=== PATIENT | female | born 1950 | race Caucasian/White ===

== ENCOUNTER → 2016-05-06 | Outpatient (CLI) | payer OTHER ==
[~2016-05-06] MED LIST: ASPEC81; ASPI81TA28 PO; CEPH500C PO; DONE1TAB11 PO; FLUO20CA35 PO; PRLSR20 PO; REFLUX MED; TRAM-10 PO
[2016-05-06 12:45] LABS: BASO % 0.2 %; BASO ABS # 0.02 K/uL (0-0.2); COMPLETE YES; EOS % 1.6 %; HEMATOCRIT 48.3 % (37-47); IG% 0.2 %; LYMPH % 35.2 %; LYMPH ABS # 3.34 K/uL (1.2-3.4); MEAN CELL VOLUME 89.4 fL (80-100); MEAN CORPUSCULAR HEMOGLOBIN 29.1 pg (25-34); MEAN CORPUSCULAR HGB CONC 32.5 g/dl (32-36); MEAN PLATELET VOLUME 10.8 fL (7.4-10.4); MONO % 6.3 %; NEUT % 56.5 %; PLATELET COUNT 286 K/uL (130-400); WHITE BLOOD COUNT 9.48 K/uL (4.8-10.8)
[2016-05-06 12:58] LABS: ALKALINE PHOSPHATASE 88 U/L (45-117); ALT/SGPT 23 U/L (12-78); AST/SGOT 13 U/L (15-37); BLOOD UREA NITROGEN 13 mg/dl (7-18); BUN/CREATININE RATIO 15.6 (10-20); CARBON DIOXIDE 25 mmol/L (21-32); CHLORIDE 104 mmol/L (98-107); CHOLESTEROL 205 mg/dl (0-200); CREATININE 0.86 mg/dl (0.60-1.20); GLUCOSE 81 mg/dl (70-99); SODIUM 138 mmol/L (136-145); TRIGLYCERIDES 103 mg/dl (0-150); VERY LOW DENSITY LIPOPROT CALC 21 mg/dl
[2016-05-06 13:08] LABS: CHOLESTEROL/HDL RATIO 3.3; HDL CHOLESTEROL 62 mg/dl
== END | disposition home or self-care (01) ==
LOC: C.LABSPEC 12:26
PROVIDERS: ATTEND Internal Medicine
DX: R41.3 Other amnesia (principal); E78.5 Hyperlipidemia, unspecified

== ENCOUNTER → 2016-07-28 | Outpatient (CLI) | payer OTHER ==
[2016-07-28 14:20] LABS: BLOOD UREA NITROGEN 16 mg/dl (7-18); BUN/CREATININE RATIO 17.4 (10-20); CALCIUM 9.2 mg/dl (8.5-10.1); CARBON DIOXIDE 25 mmol/L (21-32); CHLORIDE 106 mmol/L (98-107); CREATININE 0.92 mg/dl (0.60-1.20); GLUCOSE 97 mg/dl (70-99); POTASSIUM 3.8 mmol/L (3.5-5.1); SODIUM 141 mmol/L (136-145)
== END | disposition home or self-care (01) ==
LOC: C.LABSPEC 12:35
PROVIDERS: ATTEND Internal Medicine
DX: Z01.812 Encounter for preprocedural laboratory examination (principal)

== ENCOUNTER → 2016-07-30 | Outpatient (CLI) | payer OTHER ==
[~2016-07-30] MED LIST changes: +GADAVIST IV PRN
--- NOTE | 2016-07-30 12:30 | DIAGNOSTIC IMAGING REPORT ---
MRI OF THE BRAIN COMBO CLINICAL HISTORY: Memory loss. COMPARISON STUDY: No priors. TECHNIQUE: MRI of the brain was performed utilizing various T1 and T2-weighted sequences in the axial, sagittal, and coronal planes. Contrast-enhanced sequences were acquired following the administration of 6.5 cc of Gadavist. FINDINGS: Brain parenchyma: There are age-related involutional changes noting moderate patchy subcortical and periventricular microangiopathic disease. There is no hemorrhage or mass effect. There is no restricted diffusion to suggest acute ischemia. No enhancing mass lesion is identified on the postcontrast images. Navarrete-white matter differentiation is preserved. No extra-axial fluid collection is seen. The cerebellar tonsils are normal in configuration. Ventricles, sulci, and cisterns: Prominent secondary to involutional change. Pituitary and sella: Partially empty sella is incidentally noted. Intracranial vasculature: Normal flow voids are maintained at the skull base. Orbits: The bony orbits are grossly intact. Orbital contents are normal in appearance. Sinuses and mastoids: Clear. Calvarium: Unremarkable. Cervical cord: Partially visualized cervical spinal cord is normal in morphology and signal intensity. IMPRESSION: No acute intracranial abnormality. Electronically signed by: Zaid Boyce M.D. 07/30/2016 12:29 PM Dictated Date/Time: 07/30/2016 12:26 PM
== END | disposition home or self-care (01) ==
LOC: C.MRIBC 11:12
PROVIDERS: ATTEND Psychiatry & Neurology Neurology
DX: R41.3 Other amnesia (principal)

== ENCOUNTER 2016-09-08 14:45 | Emergency (ER) | payer OTHER ==
[~2016-09-08 14:45] MED LIST changes: -ASPI81TA28 PO; -CEPH500C PO; -DONE1TAB11 PO; -FLUO20CA35 PO; -GADAVIST IV PRN; -PRLSR20 PO; -TRAM-10 PO
[2016-09-08 15:05] VITALS: TEMP 36.6
[2016-09-08] MEDS ORDERED: CYCLOBENZAPRINE HCL 10 MG TAB PO STA (16:31)
[2016-09-08] MEDS ORDERED: FENTANYL CITRATE INJ 50 MCG/1 ML 2 ML VIAL IV STA (16:31)
--- NOTE | 2016-09-08 16:38 | EMERGENCY ROOM VISIT NOTE ---
History Report prepared by Giuseppe: Eber Valente Under the Supervision of: Dr. Nabila Cornelius M.D. First contact with patient: 16:25 Chief Complaint: FALL Stated Complaint: FELL IN BATHTUB History of Present Illness The patient is a 66 year old female who presents to the Emergency Room with complaints of a sudden fall injury at 0930. She rates her pain as an 8/10 in severity. The patient states that she fell in her tub earlier this morning by tripping over the side trying to get out. She denies any loss of consciousness, but cannot remember if she hit anything due to her memory loss. The patient reports that her granddaughter is at her home often and found the patient on the floor following the incident. The patient states that she has been experiencing back pain whenever she ambulates and has been having trouble standing up and ambulating. The patient states that she took two Tylenol to alleviate her pain. She reports that she was going to visit the chiropractor earlier today but states that the pain worsened prompting her to visit the ED. The patient admits that she takes Aspirin and cholesterol medication. She reports that she usually has a poor appetite. The patient denies incontinence and shooting pain into her legs. Source of History: patient Onset: 0930 Position: other (global) Symptom Intensity: 8/10 in severity Timing: worsening Modifying Factors (Relieving): tylenol Associated Symptoms: + back pain, No LOC, No urinary symptoms Review of Systems See HPI for pertinent positives & negatives. A total of 10 systems reviewed and were otherwise negative. Past Medical & Surgical Medical Problems: (1) GERD (gastroesophageal reflux disease) Family History Cancer FH: CAD (coronary artery disease) FH: myocardial infarction Lung disease Social History Smoking Status: Current Some Day Smoker Alcohol Use: none Drug Use: none Marital Status: Housing Status: lives with family Current/Historical Medications Scheduled Aspirin (Aspirin Ec), 81 MG PO DAILY Cephalexin Monohydrate (Keflex), 500 MG PO TID Donepezil Hydrochloride (Donepezil Hcl), 5 MG PO HS Fluoxetine (Prozac), 20 MG PO DAILY Omeprazole (Prilosec), 20 MG PO DAILY Scheduled PRN Tramadol (Ultram), 1 TABS PO Q6 PRN for Pain Allergies Coded Allergies: No Known Allergies (Verified Allergy, Unknown, 10/29/04) Physical Exam Vital Signs Date Time Temp Pulse Resp B/P (MAP) Pulse Ox O2 Delivery O2 Flow Rate FiO2 09/08/16 20:10 74 20 142/70 97 09/08/16 19:21 75 20 140/62 95 Room Air 09/08/16 18:14 57 18 153/63 96 Room Air 09/08/16 17:12 70 09/08/16 17:10 96 Room Air 09/08/16 17:08 74 20 172/78 96 Room Air 09/08/16 15:05 36.6 79 18 160/85 98 Room Air Physical Exam Vital signs reviewed. General: Well-appearing 66 year old female, in no significant distress. HEENT: No scleral icterus, PERRLA, neck supple. Atraumatic. Cardiovascular: Regular rate and rhythm, no extra sounds. Pulmonary: Clear to auscultation bilaterally, normal work of breathing. Abdomen: Soft, nontender, nondistended, positive bowel sounds. Back: Tenderness to palpation over low lumbar spine. No step or deformity. Lumbar paraspinous muscle tenderness and some pain with movement. Some mild lumbar pain with right straight leg raise. No pain with left straight leg raise. Musculoskeletal: Atraumatic, no peripheral edema. Neurologic: Patient awake alert and oriented x 3, full strength in all 4 extremities. Cranial nerves 2 through 12 grossly intact. Skin: Warm, dry, no rash Medical Decision & Procedures ER Provider Diagnostic Interpretation: Radiology results as stated below per my review and radiologist interpretation: PELVIS 1 OR 2 VIEW ROUTINE CLINICAL HISTORY: Fall. COMPARISON STUDY: CT of the abdomen and pelvis September 14, 2005. FINDINGS: The sacroiliac joints and symphysis pubis are intact. There is no acute fracture within the pelvis or the hips. IMPRESSION: No acute fracture within the pelvis or hips. Electronically signed by: Bryon Flores M.D. 09/08/2016 6:10 PM Dictated Date/Time: 09/08/2016 6:09 PM L-SPINE MIN 4 VIEWS ROUTINE CLINICAL HISTORY: Fall. COMPARISON: CT of the abdomen and pelvis September 14, 2005. FINDINGS: There is mild loss of height of the superior endplate of L2. This is age indeterminate but new since CT of September 14, 2005. Mild multilevel degenerative disc disease and moderate multilevel facet arthrosis is present. IMPRESSION: Mild compression fracture of the superior endplate of L2. While age indeterminate, the appearance favors an acute to subacute fracture. Electronically signed by: Bryon Flores M.D. 09/08/2016 6:09 PM Dictated Date/Time: 09/08/2016 6:[address] OF THE HEAD WITHOUT CONTRAST CLINICAL HISTORY: Fall. COMPARISON STUDY: MRI of the brain July 30, 2016. CT DOSE: 601.98 mGy.cm TECHNIQUE: Helical axial images of the head were obtained without IV contrast. Automated exposure control was utilized for the study. FINDINGS: No acute intracranial hemorrhage, midline shift or mass effect is present. Ventricular system is normal. Basilar cisterns are patent. There are no extra axial collections. White matter hypodensities suggests small vessel disease. There are no findings to suggest acute dural sinus thrombosis or acute territorial infarct. There is no calvarial fracture. IMPRESSION: No acute intracranial findings. Electronically signed by: Bryon Flores M.D. 09/08/2016 5:38 PM Dictated Date/Time: 09/08/2016 5:37 PM CHEST ONE VIEW PORTABLE CLINICAL HISTORY: Fall. COMPARISON STUDY: Chest radiograph September 14, 2005. FINDINGS: There is no pneumothorax or pleural effusion. There is a suspected large hiatal hernia. Mild left basilar opacity favors atelectasis. No consolidation. Mild interstitial thickening is likely chronic. IMPRESSION: 1. No acute cardiopulmonary findings. 2. Large hiatal hernia. Electronically signed by: Bryon Flores M.D. 09/08/2016 6:08 PM Dictated Date/Time: 09/08/2016 6:06 PM Laboratory Results 09/08/16 16:58 Red Blood Count 5.43, Mean Corpuscular Volume 89.5, Mean Corpuscular Hemoglobin 30.0, Mean Corpuscular Hemoglobin Concent 33.5, Mean Platelet Volume 10.4, Neutrophils (%) (Auto) 87.2, Lymphocytes (%) (Auto) 8.4, Monocytes (%) (Auto) 4.0, Eosinophils (%) (Auto) 0.0, Basophils (%) (Auto) 0.1, Neutrophils # (Auto) 15.14, Lymphocytes # (Auto) 1.45, Monocytes # (Auto) 0.70, Eosinophils # (Auto) 0.00, Basophils # (Auto) 0.01 09/08/16 16:58 Test 09/08/16 16:58 7/3/17 18:12 White Blood Count 17.35 K/uL (4.8-10.8) Red Blood Count 5.43 M/uL (4.2-5.4) Hemoglobin 16.3 g/dL (12.0-16.0) Hematocrit 48.6 % (37-47) Mean Corpuscular Volume 89.5 fL (80-100) Mean Corpuscular Hemoglobin 30.0 pg (25-34) Mean Corpuscular Hemoglobin Concent 33.5 g/dl (32-36) Platelet Count 281 K/uL (130-400) Mean Platelet Volume 10.4 fL (7.4-10.4) Neutrophils (%) (Auto) 87.2 % Lymphocytes (%) (Auto) 8.4 % Monocytes (%) (Auto) 4.0 % Eosinophils (%) (Auto) 0.0 % Basophils (%) (Auto) 0.1 % Neutrophils # (Auto) 15.14 K/uL (1.4-6.5) Lymphocytes # (Auto) 1.45 K/uL (1.2-3.4) Monocytes # (Auto) 0.70 K/uL (0.11-0.59) Eosinophils # (Auto) 0.00 K/uL (0-0.5) Basophils # (Auto) 0.01 K/uL (0-0.2) RDW Standard Deviation 43.5 fL (36.4-46.3) RDW Coefficient of Variation 13.2 % (11.5-14.5) Immature Granulocyte % (Auto) 0.3 % Immature Granulocyte # (Auto) 0.05 K/uL (0.00-0.02) Anion Gap 7.0 mmol/L (3-11) Estimated GFR () 76.2 Estimated GFR (Non- 65.7 BUN/Creatinine Ratio 15.9 (10-20) Calcium Level 9.5 mg/dl (8.5-10.1) Total Bilirubin 0.7 mg/dl (0.2-1) Direct Bilirubin 0.2 mg/dl (0-0.2) Aspartate Amino Transf (AST/SGOT) 17 U/L (15-37) Alanine Aminotransferase (ALT/SGPT) 31 U/L (12-78) Alkaline Phosphatase 88 U/L (45-117) Total Protein 7.7 gm/dl (6.4-8.2) Albumin 4.0 gm/dl (3.4-5.0) Urine Color DK YELLOW Urine Appearance CLEAR (CLEAR) Urine pH 6.0 (4.5-7.5) Urine Specific [place] 1.024 (1.000-1.030) Urine Protein NEG (NEG) Urine Glucose (UA) NEG (NEG) Urine Ketones 3+ (NEG) Urine Occult Blood 1+ (NEG) Urine Nitrite POS (NEG) Urine Bilirubin NEG (NEG) Urine Urobilinogen NEG (NEG) Urine Leukocyte Esterase SMALL (NEG) Urine WBC (Auto) >30 /hpf (0-5) Urine RBC (Auto) 5-10 /hpf (0-4) Urine Hyaline Casts (Auto) 5-10 /lpf (0-5) Urine Epithelial Cells (Auto) >30 /lpf (0-5) Urine Bacteria (Auto) 4+ (NEG) Laboratory results per my review. Medications Administered Medications (Trade) Dose Ordered Sig/Rick Route Start Time Stop Time Status Last Admin Dose Admin Fentanyl Citrate (Fentanyl Inj) 25 mcg NOW STAT IV 09/08/16 16:31 09/08/16 16:37 DC 09/08/16 17:02 25 MCG Cyclobenzaprine HCl (Flexeril Tab) 5 mg NOW STAT PO 09/08/16 16:31 09/08/16 16:37 DC 09/08/16 17:02 5 MG Morphine Sulfate (MoRPHine SULFATE INJ) 2 mg NOW STAT IV 09/08/16 18:27 09/08/16 18:29 DC 09/08/16 18:38 2 MG Ondansetron HCl (Zofran Inj) 4 mg NOW STAT IV 09/08/16 18:27 09/08/16 18:29 DC 09/08/16 18:37 4 MG Ceftriaxone Sodium (Rocephin Inj) 1 gm NOW STAT IV 09/08/16 19:20 09/08/16 19:22 DC 09/08/16 19:29 1 GM ECG Indication: other (fall) Rate (beats per minute): 73 Rhythm: normal sinus Findings: other (poor quality baseline, low voltage, t wave flattening in the inferior and anterior leads) ED Course 9: Past medical records reviewed. The patient was evaluated in room A12. A complete history and physical examination was performed. 1631: Flexeril Tab 5 mg PO, Fentanyl Injection 25 mcg IV. 1826: Zofran Injection 4 mg IV, Morphine Sulfate 2 mg IV. 1919: Rocephin Injection 1 gram IV. 2010: Upon reevaluation, the patient appeared to have improvement of her symptoms. I discussed findings with the patient. She verbalized agreement of the treatment plan. She was discharged home. Medical Decision The differential diagnosis includes but is not limited to: Trauma: Intracranial injury, cervical spine injury, intrathoracic injury, intra- abdominal injury, musculoskeletal injury. Medication Reconciliation: I attest that I have personally reviewed the patient' s current medication list. Blood Pressure Screening: Patient was found to have an elevated blood pressure and was referred to their primary doctor for recheck and further treatment. This pt was evaluated and appeared to be in no distress. IV access was obtained and lab work was drawn. Pt was placed on the environmental monitoring technician. She was given IV fentanyl, oral flexeril for her discomforts. XR of lumbar spine reveals a T2 compression fx, likely the source of pain. CT head is neg. UA is also positive. Pt was treated with IV morphine, zofran for continued pain and 1 gm IV ceftriaxone for UTI. Lab work is significant for WBC 17, likely secondary to fall and stress. VSS. Pt wishes to be d/c. She was given a Rx for keflex 500 mg TID x 7 days. She will f/u with PCP this week, use tylenol and Rx for tramadol for pain. She will return to the ED for worsening of symptoms or any medical concerns. Impression Primary Impression: Compression fracture of L2 Additional Impressions: Leukocytosis UTI (urinary tract infection) Scribe Attestation The scribe's documentation has been prepared under my direction and personally reviewed by me in its entirety. I confirm that the note above accurately reflects all work, treatment, procedures, and medical decision making performed by me. Departure Information Dispostion Home / Self-Care Prescriptions Tramadol (Ultram) 50 Mg Tab 1 TABS PO Q6 Y for Pain, #20 TAB Prov: Nabila Cornelius M.D. 09/08/16 Cephalexin Monohydrate (Keflex) 500 Mg Cap 500 MG PO TID for 7 Days, #21 CAP Prov: Nabila Cornelius M.D. 09/08/16 Referrals Brett Mcqueen M.D. (PCP) Forms HOME CARE DOCUMENTATION FORM, IMPORTANT VISIT INFORMATION Patient Instructions My [facility] Additional Instructions Diagnosis: Compression fracture L2 and UTI Keflex 500 mg 3 times a day for 7 days. Drink plenty of clear fluids. Ultram 50 mg every 6 hours as needed for pain. Warm compresses for relief. Follow-up with your physician within the next several days for reevaluation. Return to the ER for worsening of symptoms or any medical concerns. Problem Qualifiers
[2016-09-08 17:10] VITALS: O2SAT 96
[2016-09-08] MEDS ORDERED: PRLSR20 PO (17:15)
[2016-09-08 17:16] LABS: BASO % 0.1 %; BASO ABS # 0.01 K/uL (0-0.2); COMPLETE YES; HEMATOCRIT 48.6 % (37-47); IG% 0.3 %; LYMPH % 8.4 %; LYMPH ABS # 1.45 K/uL (1.2-3.4); MEAN CELL VOLUME 89.5 fL (80-100); MEAN CORPUSCULAR HGB CONC 33.5 g/dl (32-36); MEAN PLATELET VOLUME 10.4 fL (7.4-10.4); NEUT % 87.2 %; PLATELET COUNT 281 K/uL (130-400); RED BLOOD COUNT 5.43 M/uL (4.2-5.4); WHITE BLOOD COUNT 17.35 K/uL (4.8-10.8)
[2016-09-08 17:37] LABS: ALT/SGPT 31 U/L (12-78); AST/SGOT 17 U/L (15-37); BLOOD UREA NITROGEN 15 mg/dl (7-18); BUN/CREATININE RATIO 15.9 (10-20); CALCIUM 9.5 mg/dl (8.5-10.1); CARBON DIOXIDE 26 mmol/L (21-32); CHLORIDE 105 mmol/L (98-107); CREATININE 0.91 mg/dl (0.60-1.20); GLUCOSE 120 mg/dl (70-99); POTASSIUM 4.4 mmol/L (3.5-5.1); SODIUM 138 mmol/L (136-145)
--- NOTE | 2016-09-08 17:39 | DIAGNOSTIC IMAGING REPORT ---
CT OF THE HEAD WITHOUT CONTRAST CLINICAL HISTORY: Fall. COMPARISON STUDY: MRI of the brain July 30, 2016. CT DOSE: 601.98 mGy.cm TECHNIQUE: Helical axial images of the head were obtained without IV contrast. Automated exposure control was utilized for the study. FINDINGS: No acute intracranial hemorrhage, midline shift or mass effect is present. Ventricular system is normal. Basilar cisterns are patent. There are no extra axial collections. White matter hypodensities suggests small vessel disease. There are no findings to suggest acute dural sinus thrombosis or acute territorial infarct. There is no calvarial fracture. IMPRESSION: No acute intracranial findings. Electronically signed by: Bryon Flores M.D. 09/08/2016 5:38 PM Dictated Date/Time: 09/08/2016 5:37 PM
[2016-09-08 17:40] LABS: ALKALINE PHOSPHATASE 88 U/L (45-117)
--- NOTE | 2016-09-08 18:09 | DIAGNOSTIC IMAGING REPORT ---
CHEST ONE VIEW PORTABLE CLINICAL HISTORY: Fall. COMPARISON STUDY: Chest radiograph September 14, 2005. FINDINGS: There is no pneumothorax or pleural effusion. There is a suspected large hiatal hernia. Mild left basilar opacity favors atelectasis. No consolidation. Mild interstitial thickening is likely chronic. IMPRESSION: 1. No acute cardiopulmonary findings. 2. Large hiatal hernia. Electronically signed by: Bryon Flores M.D. 09/08/2016 6:08 PM Dictated Date/Time: 09/08/2016 6:06 PM
--- NOTE | 2016-09-08 18:10 | DIAGNOSTIC IMAGING REPORT ---
L-SPINE MIN 4 VIEWS ROUTINE CLINICAL HISTORY: Fall. COMPARISON: CT of the abdomen and pelvis September 14, 2005. FINDINGS: There is mild loss of height of the superior endplate of L2. This is age indeterminate but new since CT of September 14, 2005. Mild multilevel degenerative disc disease and moderate multilevel facet arthrosis is present. IMPRESSION: Mild compression fracture of the superior endplate of L2. While age indeterminate, the appearance favors an acute to subacute fracture. Electronically signed by: Bryon Flores M.D. 09/08/2016 6:09 PM Dictated Date/Time: 09/08/2016 6:08 PM
--- NOTE | 2016-09-08 18:11 | DIAGNOSTIC IMAGING REPORT ---
PELVIS 1 OR 2 VIEW ROUTINE CLINICAL HISTORY: Fall. COMPARISON STUDY: CT of the abdomen and pelvis September 14, 2005. FINDINGS: The sacroiliac joints and symphysis pubis are intact. There is no acute fracture within the pelvis or the hips. IMPRESSION: No acute fracture within the pelvis or hips. Electronically signed by: Bryon Flores M.D. 09/08/2016 6:10 PM Dictated Date/Time: 09/08/2016 6:09 PM
[2016-09-08] MEDS ORDERED: ONDANSETRON INJ 2 MG/ML 2 ML VIAL IV STA (18:27)
[2016-09-08] MEDS ORDERED: MoRPHine SULFATE 2 MG/ML CARP IV STA (18:27)
[2016-09-08 18:34] LABS: URINE APPEARANCE CLEAR (CLEAR); URINE BILIRUBIN NEG (NEG); URINE COLOR DK YELLOW; URINE EPITHELIAL CELL AUTO >30 /lpf (0-5); URINE NITRITE POS (NEG); URINE SPECIFIC GRAVITY 1.024 (1.000-1.030); UROBILINOGEN NEG (NEG); ZZUR CULT IF INDIC CLEAN CATCH YES
[2016-09-08 18:35] LABS: MANUAL MICROSCOPIC REQUIRED? NO; REVIEW REQ? NO
[2016-09-08] MEDS ORDERED: CEFTRIAXONE SOD INJ 1 GM ADDVIAL IV STA (19:20)
[2016-09-08] MEDS ORDERED: TRAM-10 PO (20:05)
[2016-09-08] MEDS ORDERED: CEPH500C PO (20:05)
[2016-09-08 20:10] VITALS: BP 142/70; PULSE 74; O2SAT 97
--- NOTE | 2016-09-10 13:04 | Pharmacy Progress Note ---
ED Pharmacist Culture FollowUp Date of Service: Sep 10, 2016. Patient was sent home with a prescription for cephalexin, which should cover the E. coli growing from the patient's urine culture, based on reported sensitivity to cefazolin.
[2016-12-07] MEDS ORDERED: FLUO20CA35 PO (17:15)
[2016-12-07] MEDS ORDERED: DONE1TAB11 PO (17:15)
[2016-12-07] MEDS ORDERED: ASPI81TA28 PO (17:15)
[2016-12-07] MEDS ORDERED: TRAM-10 PO (22:48)
== END 2016-09-08 20:11 | disposition home or self-care (01) ==
LOC: C.EDB 14:46 → C.EDA 20:11
DX: S32.029A Unspecified fracture of second lumbar vertebra, initial encounter for closed fracture (principal); N39.0 Urinary tract infection, site not specified; W18.2XXA Fall in (into) shower or empty bathtub, initial encounter; W18.09XA Striking against other object with subsequent fall, initial encounter; K21.9 Gastro-esophageal reflux disease without esophagitis; F17.200 Nicotine dependence, unspecified, uncomplicated; Z82.49 Family history of ischemic heart disease and other diseases of the circulatory system; Z79.82 Long term (current) use of aspirin; Z79.899 Other long term (current) drug therapy

== ENCOUNTER 2016-12-07 21:18 | Emergency (ER) | payer OTHER ==
[~2016-12-07] VITALS: Ht 160 cm; Wt 76.7 kg
[~2016-12-07 21:18] MED LIST changes: -ASPEC81; +ASPI81TA28 PO; +DONE1TAB11 PO; +FLUO20CA35 PO; +PRLSR20 PO; -REFLUX MED; +TRAM-10 PO
[2016-12-07 21:28] VITALS: TEMP 36.8; Ht 160 cm; Wt 76.7 kg
--- NOTE | 2016-12-07 22:01 | DIAGNOSTIC IMAGING REPORT ---
R WRIST MIN 3 VIEWS ROUTINE HISTORY: 66 years-old Female right wrist injury acute right wrist pain status post fall. COMPARISON: None available. TECHNIQUE: 4 views of the right wrist FINDINGS: The bones are osteopenic. There is acute impacted intra-articular fracture of the distal radius with fracture lines extending into the radiocarpal and distal radial ulnar articulations. There is 6 mm dorsal and 4 mm volar displacement of fracture fragments. Degenerative changes are noted about the carpus with mild to moderate triscaphe and moderate first carpometacarpal osteoarthritis. Moderate soft tissue swelling is present about the wrist. IMPRESSION: 1. Acute impacted intra-articular fracture of the distal radius with mild dorsal and volar cortical buckling. 2. Osteopenia with multifocal degenerative changes as above. The above report was generated using voice recognition software. It may contain grammatical, syntax or spelling errors. Electronically signed by: Awais Ray M.D. 12/07/2016 10:00 PM Dictated Date/Time: 12/07/2016 9:58 PM
--- NOTE | 2016-12-07 22:17 | EMERGENCY ROOM VISIT NOTE ---
ED Visit Note First contact with patient: 21:32 This Patient was discussed with the physician procurement assistant, Cornelio Ramirez PA-C. The pertinent historical and physical exam findings were confirmed. I agree with the studies ordered and with the interpretations of these studies. I agree with the disposition and care plan.
[2016-12-07] MEDS ORDERED: HYDROCODONE/ACETAMOPHEN 5/325MG TAB PO ONE (22:30)
[2016-12-07] MEDS ORDERED: TRAM-10 PO ×2 (22:48)
[2016-12-07] MEDS ORDERED: NORCO 5/325MG HOME PACK PO ONE (23:30)
[2016-12-07 23:43] VITALS: BP 166/74; PULSE 66; O2SAT 96
--- NOTE | 2016-12-08 01:32 | EMERGENCY ROOM VISIT NOTE ---
History First contact with patient: 21:32 Chief Complaint: FALL Stated Complaint: FELL,POSSIBLE BROKEN RT [facility] History of Present Illness The patient is a 66 year old female who presents to the Emergency Room with complaints of injury to her right wrist after falling about 3 hours ago. The patient was with family and admits to drinking a few drinks of alcohol tonight. The fall was mechanical in nature. She was dancing at a alliance party, when she slipped , fell, tripped Herself with her arm. The patient did not strike her head or have other injuries. She considers herself usually healthy. She does not have blood or bleeding. No numbness or paresthesias. She rates her discomfort a 5/ 10 and has not taken anything [id number] for her discomfort. Review of Systems More than 10 systems were reviewed and otherwise negative with the exception of history of present illness. Past Medical/Surgical History Medical Problems: (1) GERD (gastroesophageal reflux disease) Family History Cancer FH: CAD (coronary artery disease) FH: myocardial infarction Lung disease Social History Smoking Status: Current Every Day Smoker Alcohol Use: none Drug Use: none Marital Status: Housing Status: lives with family Current/Historical Medications Scheduled Aspirin (Aspirin Ec), 81 MG PO DAILY Donepezil Hydrochloride (Donepezil Hcl), 5 MG PO HS Fluoxetine (Prozac), 20 MG PO DAILY Omeprazole (Prilosec), 20 MG PO DAILY Scheduled PRN Tramadol (Ultram), 50 MG PO Q6 PRN for Pain Physical Exam Vital Signs Date Time Temp Pulse Resp B/P (MAP) Pulse Ox O2 Delivery O2 Flow Rate FiO2 12/07/16 23:43 66 16 166/74 96 Room Air 12/07/16 21:28 36.8 76 20 188/82 99 Room Air Physical Exam VITALS: Vitals are noted on the nurse's note and reviewed by myself. Vital signs stable. GENERAL: Well-developed, well-nourished, white female, who is in no acute distress and resting comfortably. Patient is cooperative with the examination. NECK: Supple without nuchal rigidity. No lymphadenopathy. No thyromegaly. Cervical spine is nontender. HEART: Regular rate and rhythm without murmurs gallops or rubs. LUNGS: Clear to auscultation bilaterally without wheezes, rales or rhonchi. No retractions or accessory muscle use. MUSCULOSKELETAL: Tenderness with mild deformity is appreciated along the distal end of the radius. There is no blood or bleeding appreciated. The patient is a 4/5 production expediter strength. Neurovascular status is intact distally. There is no tenderness of the right elbow and the patient is able to supinate and pronate. She is able to flex and extend at the elbow. Range of motion of the right wrist is limited secondary to patient discomfort. NEURO: Patient was alert and oriented to person place and time. CN II through XII grossly intact. GCS 15. Medical Decision & Procedures ER Provider Diagnostic Interpretation: R WRIST MIN 3 VIEWS ROUTINE HISTORY: 66 years-old Female right wrist injury acute right wrist pain status post fall. COMPARISON: None available. TECHNIQUE: 4 views of the right wrist FINDINGS: The bones are osteopenic. There is acute impacted intra-articular fracture of the distal radius with fracture lines extending into the radiocarpal and distal radial ulnar articulations. There is 6 mm dorsal and 4 mm volar displacement of fracture fragments. Degenerative changes are noted about the carpus with mild to moderate triscaphe and moderate first carpometacarpal osteoarthritis. Moderate soft tissue swelling is present about the wrist. IMPRESSION: 1. Acute impacted intra-articular fracture of the distal radius with mild dorsal and volar cortical buckling. 2. Osteopenia with multifocal degenerative changes as above. Medications Administered Medications (Trade) Dose Ordered Sig/Rick Route Start Time Stop Time Status Last Admin Dose Admin Acetaminophen/ Hydrocodone Bitart ([place] 5/325 Tab) 1 tab NOW ONCE PO 12/07/16 22:30 12/07/16 22:31 DC 12/07/16 22:34 1 TAB Acetaminophen/ Hydrocodone Bitart ([place] 5/325mg Home Pack) 1 homepack UD ONCE PO 12/07/16 23:30 12/07/16 23:31 DC 12/07/16 23:40 1 HOMEPACK ED Course Physical exam and history were performed. Nursing notes, EMR, and Medication List were personally reviewed. Patient appears to have fallen and suffered injury to her right wrist as described above. She does have tenderness and mild deformity. She was treated here in the department with oral Vicodin and x-ray was performed. X-ray appears to show a wrist fracture as described above. The case was discussed with my attending, Dr. Mancia, who also independently evaluated the patient. I then discussed the case with the on-call orthopedist, Dr Godinez, who was able to evaluate the radiographs himself. Recommendation is for splinting and sling. The orthopedist will follow-up with the patient tomorrow morning in his office at 10 AM. She is to remain nothing by mouth until seen by orthopedics. This information was relayed to the patient and family, who were pleased with this plan. Ortho-Glass splint was applied and neurovascular status remained intact. I will give the patient home pack of Vicodin was this evening as needed. The family was certainly invited back to the ER with any new, worsening , or concerning symptoms. The chart was completed utilizing [employer] Speech Voice Recognition Software. Grammatical errors, random word insertions, pronoun errors, and incomplete sentences are an occasional consequence of this system due to software limitations, ambient noise, and hardware issues. Any formal questions or concerns about the content, text, or information contained within the body of this dictation should be directly addressed to the provider for clarification. . Medical Decision Differential diagnosis includes, but is not limited to: Sprain, strain, fracture , dislocation, subluxation, contusion, and others Impression Primary Impression: Fall Additional Impression: Right wrist fracture Departure Information Dispostion Home / Self-Care Condition GOOD Referrals David Saucedo M.D. Forms HOME CARE DOCUMENTATION FORM, IMPORTANT VISIT INFORMATION Patient Instructions My [facility] Additional Instructions You were seen and evaluated today on an emergency basis only. This is not a substitute for, or an effort to provide, complete comprehensive medical care. It is not possible to recognize and treat all injuries or illnesses in a single emergency department visit. For this reason it is recommended that you followup with Dr Godinez of [facility]. His office is located in front of the hospital building. The contact information is the same as Dr. Saucedo's office below. Do not eat or drink anything after midnight. Arrive to the office at 10 AM to complete paperwork. Dr Godinez will see you sometime shorly thereafter. Let the office know we spoke directly with the Orthopedist. [place] (hydrocodone/acetaminophen) 5/325 mg (homepack) ONE pill every 6 hours as needed for worsening breakthrough pain. Do not drink or drive on [place]. This medication will likely make you tired. Do not take [place] and Tylenol at the same time as both contain acetaminophen. [place] may cause constipation. You may wish to take an [id number] stool softener like Colace if this occurs. You are welcome to return to the emergency department anytime with new, worsening, or concerning symptoms. Problem Qualifiers
== END 2016-12-07 23:57 | disposition home or self-care (01) ==
LOC: C.EDB 21:18 → C.EDD 23:57
DX: S52.501A Unspecified fracture of the lower end of right radius, initial encounter for closed fracture (principal); W19.XXXA Unspecified fall, initial encounter; K21.9 Gastro-esophageal reflux disease without esophagitis; F17.200 Nicotine dependence, unspecified, uncomplicated

== ENCOUNTER → 2016-12-08 | Day surgery (SDC) | payer OTHER ==
[~2016-12-08] VITALS: Ht 160 cm; Wt 68.0 kg
[~2016-12-08] MED LIST changes: +ATROPINE SULFATE 0.1 MG/ML 5ML SYR IV PRN; +CEFAZOLIN 2000 MG/60 ML D5W IV SCH; +DEXAMETHASONE SOD INJ 4 MG/ML VIAL IV PRN; +EpHEDrine SULFATE INJ 50 MG/ML AMP IV PRN; +FENTANYL CITRATE INJ 50 MCG/1 ML 2 ML VIAL IV PRN; +KETOROLAC TROMETHAMINE 15 MG/ML VIAL IV. PRN; +KETOROLAC TROMETHAMINE 30 MG/ML VIAL IV. PRN; +LABETALOL HCL IV 5 MG/ML 20ML IV PRN; +LACTATED RINGER'S 1000ML 1,000 ML IV SCH; +METOCLOPRAMIDE HCL INJ 5 MG/ML 2 ML VIAL IV PRN; +MoRPHine SULFATE 10 MG/ML CARP/VIAL IV PRN; +MoRPHine SULFATE 4 MG/ML 1 ML CARP\\VIAL IV PRN; +ONDANSETRON INJ 2 MG/ML 2 ML VIAL IV PRN; +OXYCODONE/ACETAMINOPHEN 5-325 TAB PO PRN; +PHENYLEPHRINE 100MCG/ML 5ML SYR IV PRN; +SODIUM CHLORIDE 0.9% 1000ML 1,000 ML IV SCH
--- NOTE | 2016-12-08 12:37 | History and Physical ---
History & Physical Date & Time of Service: Dec 08, 2016 at 12:25 Chief Complaint: Right Wrist Closed Intra Articular Distal Radius Fracture Primary Care Physician: Brett Mcqueen M.D. History of Present Illness Source: patient Patient is a 66-year-old female who was doing the trick and dance yesterday while at a [employer] and slipped and fell putting her right hand out to catch herself. She had immediate pain in her right wrist. She is right-hand dominant. She was taken to the emergency room due to deformity of her right wrist and her severe pain. X-rays were taken and she was found to have a right distal radius intra-articular fracture. She was splinted and advised to follow- up with orthopedics today. She was seen and evaluated today by Dr. Godinez. She denies any other injuries. She denies any numbness and tingling of her right hand and fingers. Surgical intervention was recommended. She has agreed to proceed with an open reduction internal fixation of her right distal radius fracture. Her surgery will be later this afternoon, she is currently nothing by mouth. Surgery will take place at the [facility]. Past Medical/Surgical History 1. Memory loss 2. History of compression fracture L2 - Approximately was 6 weeks ago 3. Hypertension 4. Hiatal hernia Family History Cancer FH: CAD (coronary artery disease) FH: myocardial infarction Lung disease Social History Smoking Status: Former Smoker (Quit 18 years ago but states she had a cigarette yesterday) Alcohol Use: none Drug Use: none Marital Status: Housing status: lives with significant other Immunizations History of Tetanus Vaccine?: Unknown History of Pneumococcal: No History of Hepatitis B Vaccine: No Multi-Drug Resistant Organisms History of MDRO: No Allergies Coded Allergies: No Known Allergies (Verified Allergy, Unknown, 10/29/04) Home Medications Scheduled Aspirin (Aspirin Ec), 81 MG PO DAILY Donepezil Hydrochloride (Donepezil Hcl), 5 MG PO HS Fluoxetine (Prozac), 20 MG PO DAILY Omeprazole (Prilosec), 20 MG PO DAILY Scheduled PRN Tramadol (Ultram), 50 MG PO Q6 PRN for Pain Review of Systems Constitutional: No fever, No chills, No sweats, No weight loss Eyes: No eye pain, No redness ENT: + problem reported (Dentures on top), No hearing loss, No sore throat, No tinnitus, No dental problems Respiratory: No cough, No sputum, No wheezing, No shortness of breath, No dyspnea on exertion Cardiovascular: No chest pain, No edema, No palpitations Abdomen: No pain, No nausea, No vomiting, No diarrhea, No constipation Musculoskeletal: + joint pain (Right wrist), + problem reported Genitourinary - Female: No dysuria, No urinary frequency, No urinary urgency, No urinary incontinence Neurologic: + memory loss, No numbness/tingling Psychiatric: No depression symptoms, No anxiety Endocrine: No fatigue, No excessive urination Hematologic / Lymphatic: No abnormal bleeding/bruising, No clotting problems Integumentary: No rash, No itch Allergic / Immunologic: + environmental allergies Physical Exam General Appearance: WD/WN, no apparent distress Head: normocephalic, atraumatic Eyes: normal inspection, PERRL, EOMI ENT: normal ENT inspection, hearing grossly normal, TMs normal, pharynx normal Neck: supple, no adenopathy, no carotid bruits, trachea midline Respiratory/Chest: chest non-tender, lungs clear, normal breath sounds, no respiratory distress, no accessory muscle use Cardiovascular: regular rate, rhythm, no edema, no murmur, normal peripheral pulses Abdomen/GI: normal bowel sounds, non tender, soft Extremities/Musculoskelatal: normal capillary refill, + pertinent finding ( Right wrist with swelling and deformity. Tender with palpation of her right distal radius and ulna. Skin is intact around the fracture site. No distal edema of her fingers. Distal sensation is normal. Capillary refill is brisk. Toleration to range of motion of her fingers although does cause pain at the fracture site. Nontender with palpation of her right elbow. Tolerates gentle flexion-extension of the elbow. Discomfort with range of motion of her right wrist. Discomfort with pronation and supination.) Neurologic/Psych: no motor/sensory deficits, alert, normal mood/affect, oriented x 3 Skin: normal color, warm/dry Diagnostics Diagnostic Radiology R WRIST MIN 3 VIEWS ROUTINE HISTORY: 66 years-old Female right wrist injury acute right wrist pain status post fall. COMPARISON: None available. TECHNIQUE: 4 views of the right wrist FINDINGS: The bones are osteopenic. There is acute impacted intra-articular fracture of the distal radius with fracture lines extending into the radiocarpal and distal radial ulnar articulations. There is 6 mm dorsal and 4 mm volar displacement of fracture fragments. Degenerative changes are noted about the carpus with mild to moderate triscaphe and moderate first carpometacarpal osteoarthritis. Moderate soft tissue swelling is present about the wrist. IMPRESSION: 1. Acute impacted intra-articular fracture of the distal radius with mild dorsal and volar cortical buckling. 2. Osteopenia with multifocal degenerative changes as above. ] CHEST ONE VIEW PORTABLE CLINICAL HISTORY: Fall. COMPARISON STUDY: Chest radiograph September 14, 2005. FINDINGS: There is no pneumothorax or pleural effusion. There is a suspected large hiatal hernia. Mild left basilar opacity favors atelectasis. No consolidation. Mild interstitial thickening is likely chronic. IMPRESSION: 1. No acute cardiopulmonary findings. 2. Large hiatal hernia. EKG Pending - obtaining preoperatively will bring to surgery. Impression Assessment and Plan Assessment: Intra-articular displaced right distal radius fracture Plan: She was seen and evaluated by Dr. Godinez today. Surgical intervention was recommended for care of her right distal radius fracture. Risks and complications were discussed and include but are not limited to infection, pain, bleeding, scarring, nerve and blood vessel damage, wound problems, weakness, malunion, nonunion, hardware failure, heart attack, stroke, and . Informed consent was obtained today. We will have her obtain a preoperative EKG at our [facility] immediately and then report directly to the surgery center for an ORIF of her right distal radius scheduled for later this afternoon. She is currently nothing by mouth. Her splint was applied in the office today. All questions were answered. She will follow up appropriately with Dr. Godinez after surgery for suture removal. A prescription was provided for [place] for postoperative pain control.
[2016-12-08 13:01] VITALS: Ht 160 cm; Wt 68.0 kg
--- NOTE | 2016-12-08 15:50 | [facility] Post Operative Brief Note ---
Immediate Operative Summary Operative Date Dec 08, 2016. Pre-Operative Diagnosis Right Distal Radius Fracture Post-Operative Diagnosis Same Procedure(s) Performed Right Distal Radius Open Reduction Internal Fixation Surgeon Dr. Godinez Ground Water Contractor Surgeon(s) Toro Ugalde PA-C Estimated Blood Loss 10ML Findings Fracture was reduced and stabilized with the short narrow Biomet DVR plate Fluids (cc crystalloids) 1100 Specimens None Drains none Anesthesia LMA with axillary block Complication(s) None Disposition Recovery Room / PACU
--- NOTE | 2016-12-08 16:04 | [facility] Operative Report ---
Operative Report Operative Date Dec 08, 2016. Pre-Operative Diagnosis Right Distal Radius Fracture Post-Operative Diagnosis Same Procedure(s) Performed Right Distal Radius Open Reduction Internal Fixation Surgeon Dr. Godinez Nail Puller Surgeon(s) Toro Ugalde PA-C Estimated Blood Loss 10ML Findings Fracture was reduced and stabilized with a short narrow Biomet DVR plate Fluids (cc crystalloids) 1100 Specimens None Drains none Anesthesia LMA with axillary nerve block Complication(s) None Disposition Recovery Room / PACU Implants Biomet DVR a short narrow plate with three 3.5 mm screws and five 2.5 mm locking screws. Indications Ms. Whitehead is a 66-year-old female who fell yesterday sustaining comminuted intra -articular distal radius fracture right wrist. Fracture shortened with our reduction of the fracture fragments including the volar fragment which was impinging in the region of her median nerve although her she was neurologically intact. Surgery is indicated reduce and fixate the fracture to optimize her long-term wrist function. Description of Procedure Patient identified in the preoperative waiting area or surgical site was marked. She is brought back to main operating room after an axillary block and been placed and general anesthesia was administered with an LMA. All bony processes padded. A Vanguard box administered. She is prepped and draped in normal sterile fashion. Prior to incision multistrand timeout was called. All murmur agreement. We began by exsanguinating the limb with an Esmarch bandage. The tourniquet is inflated 250 mmHg. A 7 cm incision was made overlying the FCR tendon starting at the proximal wrist crease and moving proximally. We dissected down to this FCR tendon sheath which was incised in line with the tendon. The tendon was then retracted ulnarly and the floor of the FCR sheath was incised with a deep knife. This was extended proximally and distally. The finger flexors were retracted ulnarly to expose the pronator quadratus. The pronator pronator quadratus was dissected off the radius starting at the radial border and moving ulnarly with a transverse incision made just proximal to the white line of the wrist capsular ligaments. The fracture was then reduced and stabilized with a single K wire inserted through the radial styloid. We then placed the Biomet short narrow DVR plate on the bone and optimized the position on the distal radius. Once it was in appropriate position. 2.5 mm drill was used to place a single 3.5 mm cortical screw through the oblong hole. We then placed our distal locking screws through the locking drill guides. These were all measured and subtracted 2 mm to ensure that the screw tips were not prominent dorsally. Fluoroscopy was used to confirm the adequacy of reduction. There was very small step-off of the dorsal fragment however I felt it was in her best interest to not perform a dorsal approach with increased dissection and hardware which could irritate her extensor tendons. We have good reduction reduction of the joint surface which is most critical factor. I then placed 2 more 3.5 mm cortical screws to secure the plate proximally. Final fluoroscopic images were obtained to confirm the reduction and screw lengths which were happy with. We then irrigated out the wound was copiously small amounts of normal saline. The pronator quadratus was laid over the top of the plate but not sutured. The deep dermis was closed with inverted 3-0 Vicryl sutures. The skin was run with 3-0 Monocryl. Steri-Strips were applied followed by sterile dressing. The patient was placed in a volar plaster slab splint with the wrist at neutral. She was then awoke from anesthesia and transferred to recovery room in stable condition. Postoperative course: X-rays will be obtained in the recovery room. She'll discharge home from recovery room. She'll follow-up with me tomorrow for a recheck. I attest to the content of the Intraoperative Record and any orders documented therein. Any exceptions are noted below.
--- NOTE | 2016-12-08 16:11 | [facility] Operative Report ---
Operative Report Operative Date Dec 08, 2016. Pre-Operative Diagnosis Right Distal Radius Fracture Post-Operative Diagnosis Same Procedure(s) Performed Right Distal Radius Open Reduction Internal Fixation Surgeon Dr. Godinez Paint Striping Machine Operator Surgeon(s) Toro Ugalde PA-C, GOPI Winkler Estimated Blood Loss 10ML Findings same Fluids (cc crystalloids) 1100 Specimens None Drains none Anesthesia general, block Complication(s) None Disposition Recovery Room / PACU Implants see Dr. Godinez's note for implants Indications sustained an injury to the right upper extremity distal radius, xrays obtained, surgery recommended, consents signed Description of Procedure taken to the OR, prepped and draped, I was present for the second half of the operative case after scrubbing-out Tita Ugalde PA-C, please see Dr. Godinez's note for further findings and detail I attest to the content of the Intraoperative Record and any orders documented therein. Any exceptions are noted below.
--- NOTE | 2016-12-08 16:13 | Discharge Instructions-SurgCtr ---
Discharge Instructions Date of Service Dec 08, 2016. Visit Reason for Visit: Right Wrist Closed Intra Articular Distal Radius F Discharge Discharge Diagnosis / Problem: s/p right wrist ORIF Discharge Goals Goal(s): Decrease discomfort, Improve function, Increase independence Activity Recommendations Activity Limitations: as noted below Lifting Limitations: until after follow-up appointment Exercise/Sports Limitations: until after follow-up appointment Shower/Bathe: keep incision dry Driving or Machine Use: when cleared by Dr. Godinez Anesthesia . Post Anesthesia Instructions: If you have had General Anesthesia or IV Sedation: * Do not drive today. * Resume driving when surgeon permits. * Do not make important decisions or sign legal documents today. * Call surgeon for: 1. Temperature elevations greater than 101 degrees F. 2. Uncontrollable pain. 3. Excessive bleeding. 4. Persistent nausea and vomiting. 5. Medication intolerance (nausea, vomiting or rash). * For nausea and vomiting use only clear liquids such as: tea, soda, bouillon until nausea subsides, then gradually increase diet as tolerated. * If you have any concerns or questions, call your surgeon's office. If physician is unavailable and it is an emergency, call 911 or go to the nearest emergency room. . Instructions / Follow-Up Instructions / Follow-Up DIET: * Resume previous diet. MEDICATIONS: * Please take your prescriptions as instructed at your pre-op appointment and/ or see medication discharge instructions listed above. * If concerns develop, call your physician's office at . SPECIAL CARE INSTRUCTIONS: * Ice/Elevate as instructed. * Keep dressing clean, dry, intact. * Your surgical extremity may be discolored due to prepping agents used on the skin. A bluish-green tint is a normal variant and should not cause alarm. Call your doctor at [phone] if: * Temperature above 101 degrees * Pain not relieved by pain medicine ordered * There is increased drainage or redness from any incision * You have any unanswered questions, problems or concerns. FOLLOW UP VISIT: * If not already scheduled, please call the office at to schedule a follow-up appointment. Diet Recommendations Home Diet: resume previous diet Procedures Procedures Performed: Right Distal Radius Open Reduction Internal Fixation Pending Studies Studies pending at discharge: no Medical Emergencies . Who to Call and When: Medical Emergencies: If at any time you feel your situation is an emergency, please call 911 immediately. . Non-Emergent Contact Non-Emergency issues call your: Primary Care Provider . . "Provider Documentation" section prepared by Dom Winkler. . [place] Drug Monitoring Program Search Results: no issues identified
--- NOTE | 2016-12-08 16:30 | Anesthesia Progress Nt - [facility] ---
Anesthesia Post Op Note Date & Time Dec 08, 2016 at 16:29 Vital Signs Pain Intensity: 0 Vital Signs Past 12 Hours Date Time Temp Pulse Resp B/P (MAP) Pulse Ox O2 Delivery O2 Flow Rate FiO2 12/08/16 16:18 67 17 12/08/16 16:18 66 17 98 12/08/16 16:16 155/75 12/08/16 16:13 72 23 97 12/08/16 16:13 73 23 12/08/16 16:12 161/67 12/08/16 16:09 162/65 12/08/16 16:08 85 98 12/08/16 16:08 36.5 78 12 162/65 97 Diffusion Mask 6 12/08/16 16:08 85 12/08/16 14:16 72 12/08/16 14:16 74 19 100 12/08/16 14:15 151/69 12/08/16 14:13 73 19 100 12/08/16 14:13 70 12/08/16 14:10 149/77 12/08/16 14:08 61 20 100 12/08/16 14:08 68 12/08/16 14:07 74 12/08/16 14:07 77 22 100 12/08/16 14:06 168/66 12/08/16 14:04 158/73 12/08/16 13:12 37 79 20 179/76 (110) 97 Room Air Notes Mental Status: alert / awake / arousable, participated in evaluation Pt Amnestic to Procedure: Yes Nausea / Vomiting: adequately controlled Pain: adequately controlled Airway Patency, RR, SpO2: stable & adequate BP & HR: stable & adequate Hydration State: stable & adequate Anesthetic Complications: no major complications apparent
[2016-12-08 17:15] VITALS: BP 164/83; PULSE 73; TEMP 37.2; O2SAT 100
== END | disposition home or self-care (01) ==
LOC: X.SURG 12:38
PROVIDERS: ATTEND Orthopaedic Surgery
DX: S52.571A Other intraarticular fracture of lower end of right radius, initial encounter for closed fracture (principal); W01.0XXA Fall on same level from slipping, tripping and stumbling without subsequent striking against object, initial encounter; Y93.41 Activity, dancing; I10 Essential (primary) hypertension; Z87.891 Personal history of nicotine dependence; Z79.82 Long term (current) use of aspirin; Z68.27 Body mass index [BMI] 27.0-27.9, adult; Z82.49 Family history of ischemic heart disease and other diseases of the circulatory system; Z83.6 Family history of other diseases of the respiratory system

== ENCOUNTER → 2016-12-09 | Outpatient (CLI) | payer OTHER ==
[~2016-12-09] MED LIST changes: -ATROPINE SULFATE 0.1 MG/ML 5ML SYR IV PRN; -CEFAZOLIN 2000 MG/60 ML D5W IV SCH; -DEXAMETHASONE SOD INJ 4 MG/ML VIAL IV PRN; -EpHEDrine SULFATE INJ 50 MG/ML AMP IV PRN; -FENTANYL CITRATE INJ 50 MCG/1 ML 2 ML VIAL IV PRN; -KETOROLAC TROMETHAMINE 15 MG/ML VIAL IV. PRN; -KETOROLAC TROMETHAMINE 30 MG/ML VIAL IV. PRN; -LABETALOL HCL IV 5 MG/ML 20ML IV PRN; -LACTATED RINGER'S 1000ML 1,000 ML IV SCH; -METOCLOPRAMIDE HCL INJ 5 MG/ML 2 ML VIAL IV PRN; -MoRPHine SULFATE 10 MG/ML CARP/VIAL IV PRN; -MoRPHine SULFATE 4 MG/ML 1 ML CARP\\VIAL IV PRN; -ONDANSETRON INJ 2 MG/ML 2 ML VIAL IV PRN; -OXYCODONE/ACETAMINOPHEN 5-325 TAB PO PRN; -PHENYLEPHRINE 100MCG/ML 5ML SYR IV PRN; -SODIUM CHLORIDE 0.9% 1000ML 1,000 ML IV SCH
== END | disposition home or self-care (01) ==
LOC: C.RDSM 09:19
PROVIDERS: ATTEND Orthopaedic Surgery
DX: S69.91XA Unspecified injury of right wrist, hand and finger(s), initial encounter (principal); X58.XXXA Exposure to other specified factors, initial encounter

== ENCOUNTER → 2016-12-23 | Outpatient (CLI) | payer OTHER | END | disposition home or self-care (01) | LOC: C.RDSM 16:41 | PROVIDERS: ATTEND Orthopaedic Surgery | DX: R52 Pain, unspecified (principal) ==

== ENCOUNTER → 2017-01-16 | Outpatient (CLI) | payer OTHER | END | disposition home or self-care (01) | LOC: C.RDSM 13:00 | PROVIDERS: ATTEND Orthopaedic Surgery | DX: S62.101A Fracture of unspecified carpal bone, right wrist, initial encounter for closed fracture (principal); X58.XXXA Exposure to other specified factors, initial encounter ==

== ENCOUNTER 2020-08-16 18:20 | Observation (INO) ==
[2020-08-16] MEDS ORDERED: SODIUM CHLORIDE 0.9% 1000ML 1,000 ML IV ONE (19:47)
--- NOTE | 2020-08-16 19:53 | Emergency Department Note ---
Impression & Plan Weak, Acute hypokalemia, High serum chloride, Acute UTI ED Provider Note NAME: KARIME MONDRAGON AGE: 70 SEX: F : 1950 ARRIVES VIA: Walk-In INFORMANT: Patient ED PROVIDER(S): González Nur DO CHIEF COMPLAINT: Weakness HPI: Patient is a 70-year-old female who presents the ER for weakness confusion and nausea. Patient does have a baseline confusion but notes that it was significantly worse. notes that she did not know where she was or what was going on which is very atypical. She could not get out of the car. She is been having some nausea but no vomiting. She denies any headache or change in vision. No chest pain or shortness of breath. Admits to nausea but no vomiting dysuria urgency or frequency. No other exacerbating or remitting factors. ROS: See above HPI for pertinent positives & negatives. A total of 10 systems reviewed and were otherwise negative. PAST MEDICAL HISTORY:See Below PAST SURGICAL HISTORY:See Below FAMILY HISTORY:See Below SOCIAL HISTORY:See Below HOME MEDICATIONS:See Below ALLERGIES:See Below VITALS:See Below PHYSICAL EXAMINATION: GENERAL: Sitting up in bed, alert, well appearing, well nourished, no distress, non-toxic EYE EXAM: normal conjunctiva. OROPHARYNX: no exudate, no erythema, lips, buccal mucosa, and tongue normal and mucous membranes are moist NECK: supple, no nuchal rigidity, no adenopathy, non-tender LUNGS: Clear to auscultation. Normal chest wall mechanics HEART: no murmurs, S1 normal and S2 normal ABDOMEN: abdomen soft, non-tender, normo-active bowel sounds, no masses, no rebound or guarding. BACK: Back is symmetrical on inspection and there is no deformity, no midline tenderness, no CVA tenderness. SKIN: no rashes and no bruising UPPER EXTREMITIES: upper extremities are grossly normal. LOWER EXTREMITIES: No pitting edema. NEURO EXAM: Normal sensorium, cranial nerves II-XII speech, no weakness of arms, no weakness of legs. No drift. Finger to nose intact. Gross sensation intact. MEDICAL DECISION MAKING: Patient is a 7-year-old female with dementia presents the ER with as she was a little weaker today and slightly more confused than baseline. IV was established with her presentation. Labs show no significant leukocytosis or an emia. INR unremarkable. BMP with mild hypokalemia at 2.9. Chloride slightly elevated at 108. She was given IV fluids. LFTs bilirubin was unremarkable. UA did have small amount nitrites. CT head was negative. 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 With her nausea and dementia and minimal pain abdominal pain on exam did discuss to the hospitalist for further evaluation and MRCP.. Patient was already given IV fluids, IV Rocephin and oral potassium. She was updated bedside. Patient was back to her baseline. Discussed with hospitalist for further evaluation. Triage Nursing notes reviewed. Limited review of prior medical records performed Vital Signs: reviewed and remarkable for HTN Differential diagnosis: Differential diagnoses includes but is not limited to toxic, metabolic, infectious, traumatic, cardiac, neurologic, hematologic, psychiatric and inflamm atory etiologies. ER treatment provided: See below Diagnostics interpreted by me: ECG: Sinus rhythm rate of 69 Normal axis No PVCs Poor baseline in V6 T wave flattening V1 through V5 No significant change from previous in 2017 Cardiac Monitoring: An order was placed for continuous cardiac monitoring. The monitor shows a rate of 72 with sinus rhythm. Laboratory studies: As stated above and show below. Imaging studies: CT head was negative CT abdomen pelvis as stated above Consultation(s): Discussed with Anastacia Crane for further evaluation Procedures: none Critical Care: None Past Med/Surg History Medical History (Updated 08/17/20 @ 00:04 by González Nur DO) Alzheimer's dementia Family History Family/Other No pertinent family history Social History Smoking Status: Current every day smoker Tobacco Type: Cigarettes Feels Safe at Home: Yes Allergies Allergies Allergy/AdvReac Type Severity Reaction Status Date / Time No Known Allergies Allergy Unknown Verified 08/16/20 20:16 Home Meds Home Medications Medication Instructions Recorded Confirmed fluoxetine 20 mg tablet 20 mg PO DAILY tab 11/18/18 08/16/20 risperidone 0.5 mg tablet 0.5 mg PO HS tab 11/18/18 08/16/20 aspirin [Aspirin Low Dose] 81 mg PO DAILY 08/16/20 08/16/20 Previous Rx's Medication Instructions Recorded omeprazole 20 mg tablet,delayed 20 mg PO DAILY #30 tab 11/18/18 release donepezil 10 mg tablet 10 mg PO HS 90 Days #90 tab 01/17/20 memantine 10 mg tablet 10 mg PO BID 90 Days #180 tab 06/27/20 cephalexin 500 mg PO Q8H #15 cap 08/17/20 Results & Data (ED) Vital Signs Vital Signs - 24 hr 08/16/20 18:23 08/16/20 20:01 08/16/20 20:11 Temperature 36.8 C Temperature Source Oral Pulse Rate - Lying 75 Pulse Rate - Sitting 76 Pulse Rate - Standing 81 Pulse Rate 87 Pulse Rate from SpO2 Sensor Respiratory Rate 18 Blood Pressure - Lying 167/49 H Blood Pressure - Sitting 169/74 H Blood Pressure- Standing 183/84 H Blood Pressure 167/76 H Blood Pressure Mean 106 Pulse Oximetry 98 97 Oxygen Delivery Method Room Air Room Air Sepsis Recent Fever Within 48 Hours No Sepsis New/Unexplained Change in Mental Status No Sepsis Action Taken by Nursing No Action Required 08/16/20 20:19 08/16/20 21:26 08/16/20 21:30 Temperature Temperature Source Pulse Rate - Lying Pulse Rate - Sitting Pulse Rate - Standing Pulse Rate 78 76 Pulse Rate from SpO2 Sensor 78 76 Respiratory Rate 24 15 Blood Pressure - Lying Blood Pressure - Sitting Blood Pressure- Standing Blood Pressure 160/63 H 149/64 H Blood Pressure Mean 95 92 Pulse Oximetry 97 98 Oxygen Delivery Method Room Air Room Air Room Air Sepsis Recent Fever Within 48 Hours Sepsis New/Unexplained Change in Mental Status Sepsis Action Taken by Nursing 08/16/20 21:31 08/16/20 21:32 08/16/20 22:00 Temperature Temperature Source Pulse Rate - Lying Pulse Rate - Sitting Pulse Rate - Standing Pulse Rate 81 77 73 Pulse Rate from SpO2 Sensor 81 78 73 Respiratory Rate 24 24 17 Blood Pressure - Lying Blood Pressure - Sitting Blood Pressure- Standing Blood Pressure 172/76 H 180/66 H 145/62 H Blood Pressure Mean 108 104 89 Pulse Oximetry 98 98 97 Oxygen Delivery Method Room Air Room Air Room Air Sepsis Recent Fever Within 48 Hours Sepsis New/Unexplained Change in Mental Status Sepsis Action Taken by Nursing 08/16/20 22:30 08/16/20 23:41 Temperature Temperature Source Pulse Rate - Lying Pulse Rate - Sitting Pulse Rate - Standing Pulse Rate 73 73 Pulse Rate from SpO2 Sensor 74 Respiratory Rate 20 17 Blood Pressure - Lying Blood Pressure - Sitting Blood Pressure- Standing Blood Pressure 142/59 H 150/58 H Blood Pressure Mean 86 88 Pulse Oximetry 98 97 Oxygen Delivery Method Room Air Room Air Sepsis Recent Fever Within 48 Hours Sepsis New/Unexplained Change in Mental Status Sepsis Action Taken by Nursing Laboratory Data Result diagrams: 08/16/20 19:58 08/16/20 19:58 Lab Results 08/16/20 08/16/20 08/16/20 Range/Units 19:58 19:58 19:58 WBC 10.26 (4.8-10.8) K/uL RBC 4.75 (4.2-5.4) M/uL Hgb 14.8 (12.0-16.0) g/dL Hct 43.9 (37-47) % MCV 92.4 (80-100) fL MCH 31.2 (25-34) pg MCHC 33.7 (32-36) g/dL RDW Std Deviation 44.5 (36.4-46.3) fL RDW Coeff of Fermin 13.0 (11.5-14.5) % Plt Count 267 (130-400) K/uL MPV 10.3 (7.4-10.4) fL Immature Gran % (Auto) 0.3 % Neut % (Auto) 76.1 % Lymph % (Auto) 16.1 % [place] % (Auto) 6.1 % Eos % (Auto) 1.1 % Baso % (Auto) 0.3 % Neut # (Auto) 7.81 H (1.4-6.5) K/uL Lymph # (Auto) 1.65 (1.2-3.4) K/uL [place] # (Auto) 0.63 H (0.11-0.59) K/uL Eos # (Auto) 0.11 (0-0.5) K/uL Baso # (Auto) 0.03 (0-0.2) K/uL Immature Gran # (Auto) 0.03 H (0.00-0.02) K/uL PT 10.3 (9.0-12.0) Seconds INR 1.0 (0.9-1.1) Sodium 140 (136-145) mmol/L Potassium 2.9 L (3.5-5.1) mmol/L Chloride 108 H (98-107) mmol/L Carbon Dioxide 26 (21-32) mmol/L Anion Gap 6.0 (3-11) BUN 5 L (7-18) mg/dl Creatinine 0.71 (0.6-1.2) mg/dl Est Cr Clr Drug Dosing Not Reportable Est GFR ( Amer) 100.0 ml/min Est GFR (Non-Af Amer) 86.3 ml/min BUN/Creatinine Ratio 6.6 L (10-20) Glucose 164 H (70-99) mg/dl Calcium 7.8 L (8.5-10.1) mg/dl Total Bilirubin 0.4 (0.2-1) mg/dl AST 6 L (15-37) U/L ALT 10 L (12-78) U/L Alkaline Phosphatase 86 (45-117) U/L Troponin I < 0.015 (0-0.045) ng/ml Total Protein 6.5 (6.4-8.2) gm/dl Albumin 3.2 L (3.4-5.0) gm/dl Globulin 3.3 (2.5-4.0) gm/dl Albumin/Globulin Ratio 1.0 (0.9-2) Urine Color Urine Appearance (Clear) Urine pH (4.5-7.5) Ur Specific [place] (1.000-1.030) Urine Protein (Negative) Urine Glucose (UA) (Negative) Urine Ketones (Negative) Urine Blood (Negative) Urine Nitrite (Negative) Urine Bilirubin (Negative) Urine Urobilinogen (Negative) Ur Leukocyte Esterase (Negative) Urine WBC (Auto) (0-5) /hpf Urine RBC (Auto) (0-4) /hpf U Hyaline Cast (Auto) (0-5) /lpf U Epithel Cells (Auto) (0-5) /lpf Urine Bacteria (Auto) (Negative) Urine Opiates Screen (Neg) Ur Methadone, Qual (Neg) Urine Barbiturates (Neg) Ur Phencyclidine (PCP) (Neg) U Amphetamin/Meth Scrn (Neg) MDMA (Ecstasy) Screen (Neg) U Benzodiazepines Scrn (Neg) Ur Cocaine Metabolite (Neg) U Marijuana (THC) Screen (Neg) 08/16/20 08/16/20 Range/Units 21:40 21:40 WBC (4.8-10.8) K/uL RBC (4.2-5.4) M/uL Hgb (12.0-16.0) g/dL Hct (37-47) % MCV (80-100) fL MCH (25-34) pg MCHC (32-36) g/dL RDW Std Deviation (36.4-46.3) fL RDW Coeff of Fermin (11.5-14.5) % Plt Count (130-400) K/uL MPV (7.4-10.4) fL Immature Gran % (Auto) % Neut % (Auto) % Lymph % (Auto) % [place] % (Auto) % Eos % (Auto) % Baso % (Auto) % Neut # (Auto) (1.4-6.5) K/uL Lymph # (Auto) (1.2-3.4) K/uL [place] # (Auto) (0.11-0.59) K/uL Eos # (Auto) (0-0.5) K/uL Baso # (Auto) (0-0.2) K/uL Immature Gran # (Auto) (0.00-0.02) K/uL PT (9.0-12.0) Seconds INR (0.9-1.1) Sodium (136-145) mmol/L Potassium (3.5-5.1) mmol/L Chloride (98-107) mmol/L Carbon Dioxide (21-32) mmol/L Anion Gap (3-11) BUN (7-18) mg/dl Creatinine (0.6-1.2) mg/dl Est Cr Clr Drug Dosing Est GFR ( Amer) ml/min Est GFR (Non-Af Amer) ml/min BUN/Creatinine Ratio (10-20) Glucose (70-99) mg/dl Calcium (8.5-10.1) mg/dl Total Bilirubin (0.2-1) mg/dl AST (15-37) U/L ALT (12-78) U/L Alkaline Phosphatase (45-117) U/L Troponin I (0-0.045) ng/ml Total Protein (6.4-8.2) gm/dl Albumin (3.4-5.0) gm/dl Globulin (2.5-4.0) gm/dl Albumin/Globulin Ratio (0.9-2) Urine Color Yellow Urine Appearance Clear (Clear) Urine pH 6.5 (4.5-7.5) Ur Specific [place] 1.012 (1.000-1.030) Urine Protein Negative (Negative) Urine Glucose (UA) Negative (Negative) Urine Ketones Negative (Negative) Urine Blood Negative (Negative) Urine Nitrite Positive A (Negative) Urine Bilirubin Negative (Negative) Urine Urobilinogen Negative (Negative) Ur Leukocyte Esterase Negative (Negative) Urine WBC (Auto) 1-5 (0-5) /hpf Urine RBC (Auto) 0-4 (0-4) /hpf U Hyaline Cast (Auto) 1-5 (0-5) /lpf U Epithel Cells (Auto) >30 H (0-5) /lpf Urine Bacteria (Auto) 4+ H (Negative) Urine Opiates Screen Neg (Neg) Ur Methadone, Qual Neg (Neg) Urine Barbiturates Neg (Neg) Ur Phencyclidine (PCP) Neg (Neg) U Amphetamin/Meth Scrn Neg (Neg) MDMA (Ecstasy) Screen Neg (Neg) U Benzodiazepines Scrn Neg (Neg) Ur Cocaine Metabolite Neg (Neg) U Marijuana (THC) Screen Pos H (Neg) Administered Medications Discontinued Medications Sodium Chloride (Nss 1000ml) 1,000 mls @ 999 mls/hr IV .Q1H1M ONE Stop: 08/16/20 20:47 Last Infusion: 08/16/20 22:01 Dose: 0 mls/hr Documented by: [id number] Admin: 08/16/20 20:32 Dose: 999 mls/hr Documented by: [id number] Ioversol (Optiray 350 500ml) 97 ml IV ONCE ONE Stop: 08/16/20 23:17 Last Admin: 08/16/20 23:16 Dose: 97 ml Documented by: [id number] Imaging Data Radiologist's Impression: Chest X-Ray 08/16/20 19:27 XR chest 1V portable CLINICAL HISTORY: Weakness COMPARISON STUDY: 09/08/2016 FINDINGS: The heart is enlarged. There is diffuse elevation of interstitium, likely secondary to congestive failure/fluid overload. An interstitial infectious/inflammatory process could appear similar. There are no significant pleural effusions. There is a retrocardiac opacity likely representing a hiatal hernia[ IMPRESSION: 1. Cardiomegaly and elevation of the interstitium, likely secondary to con gestive failure/fluid overload. Clinical and radiographic follow-up is recommended. ACT 112: Negative or not required by law. Electronically signed by: Mike Villela M.D. 08/16/2020 8:46 PM Discharge Plan Visit Data Chief Complaint: Vertigo Stated Complaint: CONFUSED, NAUSEA ED Provider: González Nur Discharge Problem: Weak, Acute hypokalemia, High serum chloride, Acute UTI Discharge Instructions Krames/Other Patient Handouts: ED [facility] UTI Activity Restrictions/Additional Instructions: Please follow up with your primary care doctor with in the next 24 hours. Any worsening of your symptoms, please return to the ED immediately. This includes any fevers greater than 100.4, worsening pain, chest pain, shortness breath, persistent nausea, vomiting, unable to eat or drink, or any other concerning signs or symptoms from your standpoint. You were found to have a blood pressure greater than 120 systolic over 90 diastolic. Due to the new Medicare guidelines, we are now recommending that you follow up with your primary care doctor in regards to this elevated blood pressure. Please take the antibiotics as prescribed. Forms Stand Alone Forms: My [facility] Prescriptions Prescriptions: New cephalexin 500 mg capsule 500 mg PO Q8H Qty: 15 RF: 0 No Action memantine 10 mg tablet 10 mg PO BID 90 Days Qty: 180 RF: 1 donepezil 10 mg tablet 10 mg PO HS 90 Days Qty: 90 RF: 1 fluoxetine 20 mg tablet 20 mg PO DAILY RF: 0 risperidone 0.5 mg tablet 0.5 mg PO HS RF: 0 omeprazole 20 mg tablet,delayed release (DR/EC) 20 mg PO DAILY Qty: 30 RF: 2 aspirin [Aspirin Low Dose] 81 mg Tablet,Delayed Release (Dr/Ec) 81 mg PO DAILY RF: 0 Referrals Referrals: Brett Phillips MD [Primary Care Provider] -
[2020-08-16 20:14] LABS: Basophils # (auto) 0.03 K/uL (0-0.2); Basophils % (auto) 0.3 %; Eosinophils # (auto) 0.11 K/uL (0-0.5); Eosinophils % (auto) 1.1 %; Hematocrit (blood only) 43.9 % (37-47); Hemoglobin 14.8 g/dL (12.0-16.0); Immature Granulocytes # (auto) 0.03 K/uL (0.00-0.02); Immature Granulocytes % (auto) 0.3 %; Lymphocytes # (auto) 1.65 K/uL (1.2-3.4); Lymphocytes % (auto) 16.1 %; Mean Corpuscular Hemoglobin 31.2 pg (25-34); Mean Corpuscular Hgb Conc 33.7 g/dL (32-36); Mean Corpuscular Volume 92.4 fL (80-100); Mean Platelet Volume 10.3 fL (7.4-10.4); Monocytes # (auto) 0.63 K/uL (0.11-0.59); Monocytes % (auto) 6.1 %; Neutrophils # (auto) 7.81 K/uL (1.4-6.5); Neutrophils % (auto) 76.1 %; Platelet Count 267 K/uL (130-400); RDW Standard Deviation 44.5 fL (36.4-46.3); Red Blood Count 4.75 M/uL (4.2-5.4); White Blood Count 10.26 K/uL (4.8-10.8)
[2020-08-16 20:23] LABS: Prothrombin Time 10.3 Seconds (9.0-12.0)
[2020-08-16 20:36] LABS: Alanine Aminotransferase 10 U/L (12-78); Albumin Level 3.2 gm/dl (3.4-5.0); Aspartate Aminotransferase 6 U/L (15-37); BUN Creatinine Ratio 6.6 (10-20); Blood Urea Nitrogen 5 mg/dl (7-18); Calcium 7.8 mg/dl (8.5-10.1); Carbon Dioxide 26 mmol/L (21-32); Chloride 108 mmol/L (98-107); Est GFR (Non-African American) 86.3 ml/min; Glucose 164 mg/dl (70-99); Potassium 2.9 mmol/L (3.5-5.1); Sodium 140 mmol/L (136-145)
[2020-08-16 20:40] LABS: Alkaline Phosphatase 86 U/L (45-117); Bilirubin,Total 0.4 mg/dl (0.2-1); Globulin 3.3 gm/dl (2.5-4.0); Total Protein 6.5 gm/dl (6.4-8.2); Troponin I < 0.015 ng/ml (0-0.045)
--- NOTE | 2020-08-16 20:47 | XRay Report ---
XR chest 1V portable CLINICAL HISTORY: Weakness COMPARISON STUDY: 09/08/2016 FINDINGS: The heart is enlarged. There is diffuse elevation of interstitium, likely secondary to jo-ann estive failure/fluid overload. An interstitial infectious/inflammatory process could appear similar. There are no significant pleural effusions. There is a retrocardiac opacity likely representing a hia panchito hernia[ IMPRESSION: 1. Cardiomegaly and elevation of the interstitium, likely secondary to congestive failure/fluid overl oad. Clinical and radiographic follow-up is recommended. ACT 112: Negative or not required by law. Electronically signed by: Mike Villela M.D. 08/16/2020 8:46 PM
[2020-08-16 22:14] LABS: Appearance Urine Clear (Clear); Bacteria Urine Automated 4+ (Negative); Bilirubin Urine Negative (Negative); Blood Urine Negative (Negative); Color Urine Yellow; Epithelial Cell Urine Auto >30 /lpf (0-5); Glucose Urine UA Negative (Negative); Ketones Urine Negative (Negative); Leukocyte Esterase Urine Negative (Negative); Nitrite Urine Positive (Negative); Protein Urine Negative (Negative); RBC Urine Automated 0-4 /hpf (0-4); Specific Gravity Urine 1.012 (1.000-1.030); Urobilinogen Urine Negative (Negative); pH Urine 6.5 (4.5-7.5)
[2020-08-16] MEDS ORDERED: POTASSIUM CHLORIDE CRTAB 20 MEQ TABCR PO STA (22:20)
[2020-08-16 22:49] LABS: Amphetamines+Metham, Urine Neg (Neg); Barbiturates, Urine Neg (Neg); Benzodiazepine, Urine Neg (Neg); Cocaine, Urine Neg (Neg); MDMA (Ecstacy), Urine Neg (Neg); Methadone, Urine Neg (Neg); Opiate, Urine Neg (Neg); Phencyclidine, Urine Neg (Neg)
[2020-08-16] MEDS ORDERED: OPTIRAY 350 500ml IV ONE (23:16)
[2020-08-17] MEDS ORDERED: cefTRIAXone SODIUM 1,000 MG/50 ML BAG IV STA (00:02)
--- NOTE | 2020-08-17 01:19 | History & Physical Report ---
Date of Service August 17, 2020 Assessment & Plan (1) Dilated cbd, acquired: -Check MRCP -GI consultation appreciated -Repeat LFTs in AM Present on Admission?: Yes (2) Mild depression: Mood stable -Continue Fluoxetine Present on Admission?: Yes (3) GERD (gastroesophageal reflux disease): Chronic -Pepcid while inpatient Present on Admission?: Yes (4) Alzheimer's dementia: Chronic -Continue Aricept -Continue Namenda -Continue Risperdal Present on Admission?: Yes (5) UTI (urinary tract infection): Afebrile, VSS -Follow cultures -Ceftriaxone 1gm IV daily F/E/N - LR at 80mL/hr x 2L, K repletion wtih repeat chemisty in AM, NPO for now Ppx - SCD Code - Full Dispo -Observation to medical History of Present Illness Chief Complaint: confusion Primary Care Provider: Brett Phillips MD 70yo female presenting with confusion, shaking and unsteady gait yesterday at 17:00. No fever/chills/cough/CP/SOB/abdominal pain/vomiting or diarrhea. She did have some nausea. No dysuria or flank pain. CT abdomen performed which showed dilated CBD and intrahepatic biliary dilation. LFTs are WNL. ER Course: Ceftriaxone Allergies Allergy/AdvReac Type Severity Reaction Status Date / Time No Known Allergies Allergy Unknown Verified 08/16/20 20:16 Home Medications Medication Instructions Recorded Confirmed Type fluoxetine 20 mg tablet 20 mg PO DAILY tab 11/18/18 08/16/20 History omeprazole 20 mg tablet,delayed 20 mg PO DAILY #30 tab 11/18/18 08/16/20 Rx release risperidone 0.5 mg tablet 0.5 mg PO HS tab 11/18/18 08/16/20 History donepezil 10 mg tablet 10 mg PO HS 90 Days #90 tab 01/17/20 08/16/20 Rx memantine 10 mg tablet 10 mg PO BID 90 Days #180 tab 06/27/20 08/16/20 Rx aspirin [Aspirin Low Dose] 81 mg PO DAILY 08/16/20 08/16/20 History cephalexin 500 mg PO Q8H #15 cap 08/17/20 Rx Past Med/Surg History Medical History (Updated 08/17/20 @ 01:37 by Sakina Crane DO) Alzheimer's dementia GERD (gastroesophageal reflux disease) Mild depression Surgical History (Updated 08/17/20 @ 01:12 by Sakina Crane DO) History of surgery on wrist Family History Family/Other No pertinent family history Social History (Updated 08/17/20 @ 01:13 by Sakina Crane DO) Smoking Status: Current every day smoker Tobacco Type: Cigarettes Hx Alcohol Use: No Feels Safe at Home: Yes Review of Systems Review of Systems: All systems reviewed & are unremarkable except as noted in HPI & below Physical Exam Physical Exam: General: patient resting comfortably, NAD, non-toxic in appe arance, AA&O to self and location Skin: warm, dry, intact, no rashes or lesions HEENT: NC/AT, PERRL, EOMI, anicteric sclera, conjunctiva without injection, external ear normal to inspection and nontender, nares patent, dry mucus membranes, dentition intact, no oropharyngeal lesions, neck supple, trachea midline, no LAD, no thyromegaly, no JVD Heart: +S1/S2, regular, no m/r/g Lungs: equal air entry bilaterally, no rales/rhonchi/wheezes Abd: +BS, soft, ND, no masses/organomegaly/ascites, negative martínez's, mild suprapubic tenderness without rebound/guarding Ext: warm, 2+ pulses in UE/LE bilaterally, no clubbing/cyanosis or edema Neuro: nonfocal, patient AA&O x 2, speech intact, no facial droop, moving all extremities on command with equal strength 5/5 Results & Data Results & Data ([facility]) Vital Signs (Past 12 Hours) Vital Signs Temp Pulse Resp BP Pulse Ox 08/16/20 23:41 73 17 150/58 H 97 08/16/20 22:30 73 20 142/59 H 98 08/16/20 22:00 73 17 145/62 H 97 08/16/20 21:32 77 24 180/66 H 98 08/16/20 21:31 81 24 172/76 H 98 08/16/20 21:30 76 15 149/64 H 98 08/16/20 21:26 78 24 160/63 H 97 08/16/20 20:01 97 08/16/20 18:23 36.8 C 87 18 167/76 H 98 Laboratory Results Laboratory Results WBC 10.26 K/uL (4.8-10.8) 08/16/20 19:58 RBC 4.75 M/uL (4.2-5.4) 08/16/20 19:58 Hgb 14.8 g/dL (12.0-16.0) 08/16/20 19:58 Hct 43.9 % (37-47) 08/16/20 19:58 MCV 92.4 fL (80-100) 08/16/20 19:58 MCH 31.2 pg (25-34) 08/16/20 19:58 MCHC 33.7 g/dL (32-36) 08/16/20 19:58 RDW Std Deviation 44.5 fL (36.4-46.3) 08/16/20 19:58 RDW Coeff of Fermin 13.0 % (11.5-14.5) 08/16/20 19:58 Plt Count 267 K/uL (130-400) 08/16/20 19:58 MPV 10.3 fL (7.4-10.4) 08/16/20 19:58 Immature Gran % (Auto) 0.3 % 08/16/20 19:58 Neut % (Auto) 76.1 % 08/16/20 19:58 Lymph % (Auto) 16.1 % 08/16/20 19:58 [place] % (Auto) 6.1 % 08/16/20 19:58 Eos % (Auto) 1.1 % 08/16/20 19:58 Baso % (Auto) 0.3 % 08/16/20 19:58 Neut # (Auto) 7.81 K/uL (1.4-6.5) H 08/16/20 19:58 Lymph # (Auto) 1.65 K/uL (1.2-3.4) 08/16/20 19:58 [place] # (Auto) 0.63 K/uL (0.11-0.59) H 08/16/20 19:58 Eos # (Auto) 0.11 K/uL (0-0.5) 08/16/20 19:58 Baso # (Auto) 0.03 K/uL (0-0.2) 08/16/20 19:58 Immature Gran # (Auto) 0.03 K/uL (0.00-0.02) H 08/16/20 19:58 PT 10.3 Seconds (9.0-12.0) 08/16/20 19:58 INR 1.0 (0.9-1.1) 08/16/20 19:58 Sodium 140 mmol/L (136-145) 08/16/20 19:58 Potassium 2.9 mmol/L (3.5-5.1) L 08/16/20 19:58 Chloride 108 mmol/L (98-107) H 08/16/20 19:58 Carbon Dioxide 26 mmol/L (21-32) 08/16/20 19:58 Anion Gap 6.0 (3-11) 08/16/20 19:58 BUN 5 mg/dl (7-18) L 08/16/20 19:58 Creatinine 0.71 mg/dl (0.6-1.2) 08/16/20 19:58 Est Cr Clr Drug Dosing Not Reportable 08/16/20 19:58 Est GFR ( Amer) 100.0 ml/min 08/16/20 19:58 Est GFR (Non-Af Amer) 86.3 ml/min 08/16/20 19:58 BUN/Creatinine Ratio 6.6 (10-20) L 08/16/20 19:58 Glucose 164 mg/dl (70-99) H 08/16/20 19:58 Calcium 7.8 mg/dl (8.5-10.1) L 08/16/20 19:58 Total Bilirubin 0.4 mg/dl (0.2-1) 08/16/20 19:58 AST 6 U/L (15-37) L 08/16/20 19:58 ALT 10 U/L (12-78) L 08/16/20 19:58 Alkaline Phosphatase 86 U/L (45-117) 08/16/20 19:58 Troponin I < 0.015 ng/ml (0-0.045) 08/16/20 19:58 Total Protein 6.5 gm/dl (6.4-8.2) 08/16/20 19:58 Albumin 3.2 gm/dl (3.4-5.0) L 08/16/20 19:58 Globulin 3.3 gm/dl (2.5-4.0) 08/16/20 19:58 Albumin/Globulin Ratio 1.0 (0.9-2) 08/16/20 19:58 Urine Color Yellow 08/16/20 21:40 Urine Appearance Clear (Clear) 08/16/20 21:40 Urine pH 6.5 (4.5-7.5) 08/16/20 21:40 Ur Specific [place] 1.012 (1.000-1.030) 08/16/20 21:40 Urine Protein Negative (Negative) 08/16/20 21:40 Urine Glucose (UA) Negative (Negative) 08/16/20 21:40 Urine Ketones Negative (Negative) 08/16/20 21:40 Urine Blood Negative (Negative) 08/16/20 21:40 Urine Nitrite Positive (Negative) A 08/16/20 21:40 Urine Bilirubin Negative (Negative) 08/16/20 21:40 Urine Urobilinogen Negative (Negative) 08/16/20 21:40 Ur Leukocyte Esterase Negative (Negative) 08/16/20 21:40 Urine WBC (Auto) 1-5 /hpf (0-5) 08/16/20 21:40 Urine RBC (Auto) 0-4 /hpf (0-4) 08/16/20 21:40 U Hyaline Cast (Auto) 1-5 /lpf (0-5) 08/16/20 21:40 U Epithel Cells (Auto) >30 /lpf (0-5) H 08/16/20 21:40 Urine Bacteria (Auto) 4+ (Negative) H 08/16/20 21:40 Urine Opiates Screen Neg (Neg) 08/16/20 21:40 Ur Methadone, Qual Neg (Neg) 08/16/20 21:40 Urine Barbiturates Neg (Neg) 08/16/20 21:40 Ur Phencyclidine (PCP) Neg (Neg) 08/16/20 21:40 U Amphetamin/Meth Scrn Neg (Neg) 08/16/20 21:40 MDMA (Ecstasy) Screen Neg (Neg) 08/16/20 21:40 U Benzodiazepines Scrn Neg (Neg) 08/16/20 21:40 Ur Cocaine Metabolite Neg (Neg) 08/16/20 21:40 U Marijuana (THC) Screen Pos (Neg) H 08/16/20 21:40 Impressions Chest X-Ray 08/16/20 19:27 XR chest 1V portable CLINICAL HISTORY: Weakness COMPARISON STUDY: 09/08/2016 FINDINGS: The heart is enlarged. There is diffuse elevation of interstitium, likely secondary to congestive failure/fluid overload. An interstitial infectious/inflammatory process could appear similar. There are no significant pleural effusions. There is a retrocardiac opacity likely representing a hiatal hernia[ IMPRESSION: 1. Cardiomegaly and elevation of the interstitium, likely secondary to congestive failure/fluid overload. Clinical and radiographic follow-up is recommended. ACT 112: Negative or not required by law. Electronically signed by: Mike Villela M.D. 08/16/2020 8:[address] Abdomen -Per STAT rad - large hiatal hernia. Diffuse thickening versus incomplete distention of the stomach. Unable to exclude underlying gastritis. Solid organs are unremarkable. 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 Mildly prominent CBD measuring 10cm in diameter with mild intrahepatic biliary dilatation. Extensive sigmoid diverticulosis. CT Head - Per STAT rad - no AIH, edema or mass. Mild atrophy and moderate patchy bilateral white matter chronic microvascular ischemic changes. PG Care Time/CCT Total # of Minutes Spent Total Time Spent with Patient: Total time spent is greater than 50% in coordination of care (as documented) at patient's floor/unit and/or counseling patient: Coding Level of Care Code 13329 OBS Care - Level 3 Diagnoses Dilated cbd, acquired K83.8 Mild depression F32.0 GERD (gastroesophageal reflux disease) K21.9 Esophagitis presence: esophagitis presence not specified Alzheimer's dementia G30.9; F02.80 UTI (urinary tract infection) N39.0 Urinary tract infection type: site unspecified Hematuria presence: without hematuria (1) GERD (gastroesophageal reflux disease) Esophagitis presence: esophagitis presence not specified Qualified Code(s): K21.9 - Gastro-esophageal reflux disease without esophagitis (2) UTI (urinary tract infection) Urinary tract infection type: site unspecified Hematuria presence: without hematuria Qualified Code(s): N39.0 - Urinary tract infection, site not specified
[2020-08-17] MEDS ORDERED: ACETAMINOPHEN 325 MG TAB PO PRN (03:06)
[2020-08-17] MEDS ORDERED: POTASSIUM CHLORIDE CRTAB 20 MEQ TABCR PO STA (03:14)
[2020-08-17] MEDS ORDERED: LACTATED RINGER'S 1,000 ML IV SCH (03:15)
[2020-08-17] MEDS ORDERED: risperiDONE 0.5 MG TABLET PO SCH (03:30)
[2020-08-17 03:35] LABS: Magnesium 1.7 mg/dl (1.8-2.4); Phosphorus 3.7 mg/dl (2.5-4.9)
[2020-08-17] MEDS ORDERED: PATIENT'S HEIGHT AND/OR WEIGHT NEEDED SCH (03:45)
--- NOTE | 2020-08-17 06:58 | CT Scan Report ---
CT head/brain wo con CLINICAL HISTORY: 70 years-old Female with ams. Acutely altered mental status TECHNIQUE: Multiple axial CT images of the head were obtained without contrast. A dose lowering tech nique was utilized adhering to the principles of ALARA. CT DOSE: 1915.68 mGycm COMPARISON: 05/04/2018. FINDINGS: No acute intracranial hemorrhage, midline shift, intracranial mass, hydrocephalus, territorial ischem ia or abnormal extra-axial collection. Age-related involutional changes. White matter hypodensities s uggestive of chronic microvascular ischemic disease. The calvarium is intact. The paranasal sinuses, mastoid air cells, and middle ear cavities are clear . IMPRESSION: No acute intracranial abnormality. ACT 112: Negative or not required by law. The above report was generated using voice recognition software. It may contain grammatical, syntax o r spelling errors. Electronically signed by: Ricardo Ray M.D. 08/17/2020 6:57 AM
--- NOTE | 2020-08-17 08:21 | CT Scan Report ---
CT abd pelvis IV con only CLINICAL HISTORY: abd pain COMPARISON STUDY: None. TECHNIQUE: The patient was scanned in a dynamic helical fashion during intravenous administration of 97 cc of Optiray 320. A dose lowering technique was utilized adhering to the principles of ALARA. CT DOSE: 706.33 mGycm FINDINGS: Lower chest: There is a hiatal hernia with equivocal distal esophageal wall thickening. There are bas ilar atelectatic changes. Liver: No focal hepatic masses are visualized. There is minimal central biliary ductal prominence. Th e common bile duct is minimally dilated measuring 8 mm. Gallbladder: Cholelithiasis. Gallbladder wall calcifications not excluded. Spleen: Normal in size and attenuation. Pancreas: Unremarkable. Adrenal glands: There is mild adrenal gland thickening Kidneys: There is symmetric renal cortical enhancement. The kidneys are normal in size without hydron ephrosis. Bowel: There are no transition zones to indicate bowel obstruction. There is colonic diverticulosis. There is sigmoid wall thickening, likely secondary to peridiverticular muscular hypertrophy. There is no convincing evidence of acute diverticulitis.. The appendix is not visualized with certainty. Ther e are no findings to indicate acute appendicitis. There is moderate right colonic submucosal fat hype rtrophy. Peritoneum: There is no free air. There is trace pelvic fluid. Vasculature: The abdominal aorta is normal in course and caliber. Adenopathy: None. Pelvic viscera: No pathologic adnexal masses are visualized. There is mild bladder wall thickening. Skeletal structures: No destructive osseous lesions are seen. There is a mild L2 vertebral body compr ession deformity. IMPRESSION: 1. No evidence of bowel obstruction. No evidence of free air 2. Cholelithiasis. Gallbladder wall calcification not excluded 3. Large hiatal hernia with possible distal esophageal wall thickening 4. Mild central intrahepatic biliary ductal prominence. Mildly dilated common bile duct. 5. Colonic diverticulosis. Mild sigmoid wall thickening, likely secondary to peridiverticular muscula r hypertrophy. No convincing evidence of acute diverticulitis. 6. No evidence of acute appendicitis 7. Subocclusive fat hypertrophy within the ascending colon 8. Mild bladder wall thickening ACT 112: Negative or not required by law. Electronically signed by: Mike Villela M.D. 08/17/2020 8:20 AM
[2020-08-17] MEDS ORDERED: MEMANTINE HCL 10 MG TAB PO SCH (09:00)
[2020-08-17] MEDS ORDERED: FAMOTIDINE 40 MG TABLET PO SCH (09:00)
[2020-08-17] MEDS ORDERED: FLUoxetine HCL 20 MG CAP PO SCH (09:00)
--- NOTE | 2020-08-17 10:37 | Gastrointestinal Consultation ---
Date of Consultation August 17, 2020 Assessment & Plan (1) Dilated cbd, acquired: Suspect chronic. Patient's LFTs are normal. MRCP pending. 1. Discussed with Dr. Blanco. Patient to undergo outpatient EUS which is being arranged by his office. 2. Continue to trend liver panel. 3. Await MRCP as ordered. 4. Continue supportive care. Thank you for allowing us to participate in the care of this pleasant patient. If you have any questions or concerns, please do not hesitate to contact us. Supervising Physician Co-Signing Physician Notes Agree with ANT Cerda as above Abd: Soft, NT, ND, +BS Continue supportive care and current therapy She will be contacted by Dr. Blanco's office for arrangement for outpatient EUS. History of Present Illness Reason for Consultation: Dr. Crane Requesting Physician: CBD dilation Attending Physician: González Burgess DO History of Present Illness Patient is a very pleasant 70 y.o. female with a history of GERD and dementia admitted with gait instability. She did undergo a CT scan upon arrival and was found incidentally to have CBD dilation of ~ 8mm and cholelithiasis. Liver panel is normal, however. She denies any abdominal pain, nausea or vomiting, fevers, chills, other GI complaints. MRCP has been ordered/performed and is pending at the time of evaluation. Allergies Allergy/AdvReac Type Severity Reaction Status Date / Time No Known Allergies Allergy Unknown Verified 08/16/20 20:16 Home Medications Medication Instructions Recorded Confirmed Type fluoxetine 20 mg tablet 20 mg PO DAILY tab 11/18/18 08/16/20 History omeprazole 20 mg tablet,delayed 20 mg PO DAILY #30 tab 11/18/18 08/16/20 Rx release risperidone 0.5 mg tablet 0.5 mg PO HS tab 11/18/18 08/16/20 History donepezil 10 mg tablet 10 mg PO HS 90 Days #90 tab 01/17/20 08/16/20 Rx memantine 10 mg tablet 10 mg PO BID 90 Days #180 tab 06/27/20 08/16/20 Rx aspirin [Aspirin Low Dose] 81 mg PO DAILY 08/16/20 08/16/20 History cephalexin 500 mg PO Q8H #15 cap 08/17/20 Rx Patient History Medical History Alzheimer's dementia GERD (gastroesophageal reflux disease) Mild depression Surgical History History of surgery on wrist Family History Family/Other No pertinent family history Social History Smoking Status: Current every day smoker Tobacco Type: Cigarettes Cigarettes Per Day: 1-2 PPD; Hx Alcohol Use: No Hx Substance Use: No Preferred Language: Japanese Communication Ability: Effective [employer] Required: No Beliefs That Will Affect Care: None Current Living Situation: Spouse Feels Safe at Home: Yes Assistive Devices: Glasses Review of Systems Constitutional: as per Subjective / HPI Gastrointestinal: as per Subjective / HPI Physical Exam Constitutional: WD/WN, vitals as above well developed and well nourished Neck: normal visual inspection Respiratory: normal respiratory effort, lungs clear to auscultation Cardiovascular: Rate/Rhythm: regular rate and regular rhythm Gastrointestinal (Abdomen): Inspection/Auscultation: abdomen normal to inspection and normal bowel sounds Percussion/Palpation: + abdomen tender (mild RUQ ) and abdomen soft Skin: no jaundice Psychiatric: A+Ox3, euthymic affect Results & Data ([facility]) Vital Signs (Past 12 Hours) Vital Signs Pulse Pulse Resp BP BP Pulse Ox 08/17/20 03:28 78 18 150/84 H 94 08/17/20 02:00 60 17 153/64 H 98 08/17/20 01:48 57 L 19 171/65 H 99 08/17/20 01:30 65 16 158/74 H 98 08/17/20 01:00 170/86 H 96 08/17/20 00:30 64 16 132/49 L 95 08/17/20 00:00 66 16 152/70 H 95 08/16/20 23:41 73 17 150/58 H 97 Laboratory Results Abnormal lab results 08/16/20 08/16/20 08/16/20 Range/Units 19:58 19:58 21:40 Neut # (Auto) 7.81 H (1.4-6.5) K/uL Bosque # (Auto) 0.63 H (0.11-0.59) K/uL Immature Gran # (Auto) 0.03 H (0.00-0.02) K/uL Potassium 2.9 L (3.5-5.1) mmol/L Chloride 108 H (98-107) mmol/L BUN 5 L (7-18) mg/dl BUN/Creatinine Ratio 6.6 L (10-20) Glucose 164 H (70-99) mg/dl Calcium 7.8 L (8.5-10.1) mg/dl Magnesium 1.7 L (1.8-2.4) mg/dl AST 6 L (15-37) U/L ALT 10 L (12-78) U/L Albumin 3.2 L (3.4-5.0) gm/dl Urine Nitrite Positive A (Negative) U Epithel Cells (Auto) >30 H (0-5) /lpf Urine Bacteria (Auto) 4+ H (Negative) U Marijuana (THC) Screen (Neg) 08/16/20 Range/Units 21:40 Neut # (Auto) (1.4-6.5) K/uL Bosque # (Auto) (0.11-0.59) K/uL Immature Gran # (Auto) (0.00-0.02) K/uL Potassium (3.5-5.1) mmol/L Chloride (98-107) mmol/L BUN (7-18) mg/dl BUN/Creatinine Ratio (10-20) Glucose (70-99) mg/dl Calcium (8.5-10.1) mg/dl Magnesium (1.8-2.4) mg/dl AST (15-37) U/L ALT (12-78) U/L Albumin (3.4-5.0) gm/dl Urine Nitrite (Negative) U Epithel Cells (Auto) (0-5) /lpf Urine Bacteria (Auto) (Negative) U Marijuana (THC) Screen Pos H (Neg) PG Care Time/CCT Total # of Minutes Spent Total Time Spent with Patient: Total time spent is greater than 50% in coordination of care (as documented) at patient's floor/unit and/or counseling patient: Coding Level of Care Code 60733 Initial Inpt Care Lvl 3 Diagnoses Dilated cbd, acquired K83.8
--- NOTE | 2020-08-17 11:02 | Magnetic Resonance Report ---
MR MRCP HISTORY: 70 years-old Female dilated CBC, intra/extrahepatic ducts acute nausea with weakness COMPARISON: CT abdomen and pelvis 08/16/2020 TECHNIQUE: MRCP was obtained according to institutional protocol without the use of IV contrast. FINDINGS: Motion degraded exam. Imaged lung bases are clear. Large hiatal hernia. The spleen, pancreas and adre nal glands are unremarkable. Unremarkable visualized liver. Cholelithiasis with intrahepatic and extr ahepatic biliary ductal dilation. The common bile duct measures up to 8 mm transversely. There is red arent wall thickening of the distal common bile duct which is not appreciated on CT and may be artifa ctual. Mild intrahepatic biliary ductal prominence. No biliary ductal filling defects or strictures i dentified. No pancreatic ductal dilation identified. No pancreatic divisum. No free fluid. IMPRESSION: 1. Motion degraded exam. 2. Cholelithiasis with mild intrahepatic and extrahepatic biliary ductal dilation. No choledocholithi asis identified. 3. Large hiatal hernia. ACT 112: Negative or not required by law. The above report was generated using voice recognition software. It may contain grammatical, syntax o r spelling errors. Dictated: 08/17/2020 8:36 AM Transcribed: 08/17/2020 9:10 AM Anne-Marie [id number] [email or web address] Electronically signed by: Ricardo Ray M.D. 08/17/2020 11:01 AM
--- NOTE | 2020-08-17 11:15 | Medical Student Progress Note ---
Date of Service August 17, 2020 Assessment & Plan (1) Dilated cbd, acquired: (1) Dilated CBD, Cholelithiasis - Found on Abd/pelvic CT. Suspect chronic. Patient's LFTs are normal. MRCP pending. - GI consulted: Patient to undergo outpatient EUS which is being arranged by Dr. Blanco's office. - Continue to trend liver panel. - Await MRCP as ordered. - Continue supportive care. Admission and Anticipated Discharge Date Admission Date: August 17, 2020 [address] Mrs. Reno was lying comfortable when I awoke her this morning. She said she was feeling fine and was feeling no pain. Review of Systems Constitutional: as per Subjective / HPI; no fever and no chills Respiratory: + cough; no dyspnea Cardiovascular: no chest pain Gastrointestinal: no abdominal pain, no nausea and no vomiting Genitourinary: no dysuria, no difficulty urinating, no urinary frequency and no urinary urgency Physical Exam Constitutional: well developed and well nourished; no acute distress Respiratory: normal respiratory effort, lungs clear to auscultation Cardiovascular: RRR, no murmur, no edema Heart Sounds: normal S1 and normal S2 Gastrointestinal (Abdomen): Inspection/Auscultation: normal bowel sounds; abdomen not distended Percussion/Palpation: + abdomen tender (diffuse mild tenderness to deep palpation) Results & Data ([facility]) Vital Signs (Past 12 Hours) Vital Signs Pulse Pulse Resp BP BP Pulse Ox 08/17/20 03:28 78 18 150/84 H 94 08/17/20 02:00 60 17 153/64 H 98 08/17/20 01:48 57 L 19 171/65 H 99 08/17/20 01:30 65 16 158/74 H 98 08/17/20 01:00 170/86 H 96 08/17/20 00:30 64 16 132/49 L 95 08/17/20 00:00 66 16 152/70 H 95 08/16/20 23:41 73 17 150/58 H 97
--- NOTE | 2020-08-17 16:26 | Discharge Summary ---
Date of Service August 17, 2020 Admission HPI Per Admitting Provider 70yo female presenting with confusion, shaking and unsteady gait yesterday at 17:00. No fever/chills/cough/CP/SOB/abdominal pain/vomiting or diarrhea. She did have some nausea. No dysuria or flank pain. CT abdomen performed which showed dilated CBD and intrahepatic biliary dilation. LFTs are WNL. ER Course: Ceftriaxone Admission Exam Per Admitting Provider General: patient resting comfortably, NAD, non-toxic in appearance, AA&O to self and location Skin: warm, dry, intact, no rashes or lesions HEENT: NC/AT, PERRL, EOMI, anicteric sclera, conjunctiva without injection, external ear normal to inspection and nontender, nares patent, dry mucus membranes, dentition intact, no oropharyngeal lesions, neck supple, trachea midline, no LAD, no thyromegaly, no JVD Heart: +S1/S2, regular, no m/r/g Lungs: equal air entry bilaterally, no rales/rhonchi/wheezes Abd: +BS, soft, ND, no masses/organomegaly/ascites, negative martínez's, mild suprapubic tenderness without rebound/guarding Ext: warm, 2+ pulses in UE/LE bilaterally, no clubbing/cyanosis or edema Neuro: nonfocal, patient AA&O x 2, speech intact, no facial droop, moving all extremities on command with equal strength 5/5 Principal Diagnosis Confusion, unsteady gait, CBD dilation, cholelithiasis Discharge Data Allergies Allergy/AdvReac Type Severity Reaction Status Date / Time No Known Allergies Allergy Unknown Verified 08/16/20 20:16 Consultations 08/17/20 00:28 ED Decision to Admit Stat 08/17/20 03:06 Consult Gastroenterology Routine Ordered Studies 08/16/20 19:47 CT head/brain wo con Urgent 08/16/20 22:44 CT abd pelvis IV con only Urgent 08/17/20 03:06 MR MRCP Routine Hospital Course (1) Alzheimer's dementia: Confusion, unsteady gait, Alzheimer's dementia Patient's confusion on admission was noted to not be far from patient's baseline considering her history of Alzheimer's dementia. Imaging showed a dilated CBD duct. GI was consulted and ordered MRCP, which showed cholelithiasis and a dilated CBD duct. Patient's exam remained reassuring. GI felt these findings would be best managed on an outpatient basis, and arranged follow-up. Patient's presenting symptoms were felt to be unlikely related to these GI findings, and were felt to be likely secondary to patient's known Alzheimer's dementia. Patient was discharged on hospital day one in stable condition. Patient was hemodynamically stable for the entirety of her hospitalization. Asymptomatic bacteriuria UA on admission was notable for bacteria and leuk esterase, in addition to epithelial cells concerning for contamination. Patient was treated with a dose of IV ceftriaxone. Prior to discharge, patient's clinical picture was reviewed, and, given the lack of urinary symptoms, patient's UA findings were felt to be due to asymptomatic bacteriuria not requiring further treatment. Hypokalemia Patient's potassium was noted on admission to be 2.9, and patient was treated with oral repletion. Patient's hypokalemia was felt likely to be secondary to poor PO intake. Instructions for encouraging PO intake were provided upon discharge, and PCP follow-up was recommended. Total Time Total Time Spent Total Time Spent (In Minutes): <30 Discharge Plan Discharge Items Patient Disposition: Home - Self-Care Reason For Visit: DILATED CBD Discharge Diagnosis: Cholelithiasis, mild CBD dilation, confusion Condition on Discharge: Good Activity: Resume your previous activity Non-emergency contact: Primary Care Provider and Surgeon Call non-emergency contact if: your symptoms worsen, your pain is worsening and you have a fever Follow-up/Referrals: Brett Phillips MD [Primary Care Provider] - Diet: Regular Addtl Attending Provider Instructions: You were admitted to the hospital for confusion and dizziness. You were treated with antibiotics and potassium. Imaging was performed and showed gallstones and a dilated common bile duct, and so it will be very important for you to follow up with GI going forward so they can help plan next steps. A discharge summary will be sent to your primary care physician to ensure continuity of care. Please bring this discharge summary with you to your next office appointment so that your provider can review it at that time. Follow-up appointments: Make a follow-up appointment with your PCP within the next week. It is very important that you follow up with them shortly after discharge from the ospital. Make an appointment with [facility]. If you do not hear from them by Thursday, give their office a call at [phone]. Keep all your follow-up appointments as already scheduled. If you cannot make an appointment, notify your provider. Medications: Your medication list has been reviewed and reconciled upon discharge to ensure accuracy and continuity of care. An updated list of all your medications is included with your hospital discharge paperwork. Initially we were worried that a urinary tract infection was causing confusion. Now that some time has passed, we no longer think this is the case, and do not think you have a urinary tract infection. An antibiotic was sent to your pharmacy, but you do not need to pick this up or take it. Take your medications as instructed; do not skip a dose of your medicines. Make sure all of your doctors know every medicine you are taking (including yeym-clu-qbxetwt medicines, vitamins, and supplements). Call your primary care provider before taking any new medicines (including oite-qre-avpztqz medicines, vitamins, and supplements), because some of these may interact with your current medications, or may make your symptoms worse. Tell your primary care provider if you cannot afford your medications. CONTACT YOUR PRIMARY CARE PROVIDER if you experience any of the following: Worsening abdominal pain Nausea or vomiting Difficulty following your treatment plan, or difficulty taking medications CALL 911 OR GO TO THE EMERGENCY DEPARTMENT if you experience any of the following: Sudden, severe abdominal pain or nausea/vomiting Severe chest pain, or chest pain that radiates (moves) to your jaw or arm Sudden, severe shortness of breath or difficulty breathing Thank you for allowing us to participate in your care. Pending Studies at Discharge: No Stand-Alone Forms: My [facility] Phonitive - Touchalize, Smoking Cessation Medications and DC Order Prescriptions: Continued memantine 10 mg tablet 10 mg PO BID 90 Days Qty: 180 RF: 1 donepezil 10 mg tablet 10 mg PO HS 90 Days Qty: 90 RF: 1 fluoxetine 20 mg tablet 20 mg PO DAILY RF: 0 risperidone 0.5 mg tablet 0.5 mg PO HS RF: 0 omeprazole 20 mg tablet,delayed release (DR/EC) 20 mg PO DAILY Qty: 30 RF: 2 aspirin [Aspirin Low Dose] 81 mg Tablet,Delayed Release (Dr/Ec) 81 mg PO DAILY RF: 0 Discharge Orders: Discharge Order (Routine); Ordered 08/17/20 Ordered By: Cody Cruz Admission Data Admit Date/Time: 08/17/20 01:10 Attending Provider: González Burgess Admit Provider: Sakina Crane Primary Care Provider: Brett Phillips Other Providers: Sakina Crane ; Yakov Juarez Other Interventions: Discharge Summary Assessment (RN) Last Done: 08/17/20 16:23 Supervising Physician Co-Signing Physician Notes I personally examined the patient and verified all elkins points of history and exam, discussed case, and agree with decision making with Dr Cruz. Feeling better and wants to go home. present at the bedside and notes that she looks at her baseline as well. She has no dysuria. Whenever I discussed the possibility of dehydration, they both seem to be in agreement that is quite probable. Vitals noted, in general she is awake and alert pleasant no distress. HEENT normocephalic atraumatic mucous membranes moist. Breathing unlabored no accessory muscle use good effort. Skin shows no rashes no pallor or icterus. No focal neuro deficits. Delirium on dementiaseems to been a mild metabolic encephalopathy due to dehydration. Does not appear to have been an encephalopathy related to UTIonce she is awake and alertshe has no urinary symptomstherefore likely asymptomatic bacteriuria. Dilated common bile ductno acute process appears to be at play/no acute intervention neededoutpatient GI follow-up Stable for homeotherwise as above. Resident Activity Tracking Resident Involvement: Resident Care Provided Care Provided: Adult Hospital Medicine
--- NOTE | 2020-08-17 19:32 | Billing Data ---
Date of Service August 17, 2020 Coding Level of Care Code 56523 OBS Care - Discharge
[2020-08-17] MEDS ORDERED: DONEPEZIL HCL 10 MG TAB PO SCH (21:00)
[2020-08-18] MEDS ORDERED: cefTRIAXone SODIUM 1,000 MG in DEXTROSE 5% 50 ML IV SCH (01:00)
--- NOTE | 2020-08-18 07:44 | Electrocardiogram Report ---
Test Reason : Blood Pressure : / mmHG Vent. Rate : 069 BPM Atrial Rate : 069 BPM P-R Int : 142 ms QRS Dur : 102 ms QT Int : 320 ms P-R-T Axes : 053 034 024 degrees QTc Int : 342 ms Normal sinus rhythm Nonspecific ST and T wave abnormality Abnormal ECG When compared with ECG of 08-SEP-2016 17:04, No significant change Confirmed by Mark Macario ([id number]) on 08/18/2020 7:44:10 AM Referred By: REFERRED SELF Confirmed By:Mark Macario
[2020-08-20 14:46] LABS: Marijuana Quant, GCMS Urine 716 ng/mL (<5)
== END 2020-08-17 16:56 | disposition home or self-care (01) ==
LOC: ED 18:20 → EDINP 18:20 → SUATTDRO 08-17 01:10 → EDINP 08-17 03:00